=== PATIENT | male | born 1965 | race African-American/Black ===

== ENCOUNTER 2016-05-30 23:24 | Emergency (ER) | payer OTHER ==
[2016-05-30] MEDS ORDERED: ASPIRIN PO ONE (23:39)
--- NOTE | 2016-05-30 23:56 | PROVIDER DOCUMENTATION ---
HPI-Cardiac General - General Chief Complaint: Palpitations Stated Complaint: CHEST PAIN Time Seen by Provider: 05/31/16 00:00 Source: patient, family () Allergies/Adverse Reactions: Patient Allergies Allergy/AdvReac Type Severity Reaction Status Date / Time lisinopril Allergy ANAPHYLAXIS Verified 05/30/16 23:36 - History of Present Illness-Cardiac Nature of Presenting Problem: 50 y/o AAAmy presents to the ED with his heart racing that began this evening. Pt states this happened once before 7 months ago where he had to be cardioversion. Pt says he became SOB when it started. Location: reports: substernal Quality of Pain: reports: pressure Severity in ED: moderate Onset/Duration: this evening Timing: still present Modifying Factors: improves with: nothing Palpitation Quality: fast/pounding heart beat History of arrythmia: reports: A-Fib Recent use of:: reports: no stimulants Review of Systems - Adult - REVIEW OF SYSTEMS - ADULT Constitutional: denies: chills, fever Eyes: reports: no symptoms reported Ears, Nose, Mouth & Throat: reports: no symptoms reported Cardiovascular: reports: palpitations. denies: edema, orthopnea, poor circulation, syncope Respiratory: reports: shortness of breath. denies: cough, wheezing Gastrointestinal: denies: abdominal pain, diarrhea, nausea, vomiting Genitourinary: reports: no symptoms reported Musculoskeletal: reports: no symptoms reported Integumentary: reports: no symptoms reported Neurological: reports: no symptoms reported Psychiatric: reports: no symptoms reported Endocrine: reports: no symptoms reported Hematologic/Lymphatic: reports: no symptoms reported Allergic/Immunologic: reports: no symptoms reported All Other Systems: Reviewed and Negative Past History - Adult - PAST MEDICAL HISTORY-ADULT Review of Records: reports: Old Records Reviewed, Nursing Assessment Review, Medications Reviewed Major Childhood Illnesses: reports: denies history Cardiovascular: reports: HTN Respiratory: reports: denies history Gastrointestinal: reports: pancreatitis Genitourinary: reports: denies history Musculoskeletal: reports: denies history Neurological: reports: denies history Psychiatric: reports: denies history Endocrine/Immune: reports: denies history Other Conditions: reports: denies history - PRIOR SURGERIES/PROCEDURES Surgical/Procedure History: reports: none - IMMUNIZATION STATUS Childhood Immunizations: See Nurse Assessment Flu Vaccine: See Nurse Assessment - FAMILY HISTORY Family History: reviewed, not pertinent Physical Exam-General - PHYSICAL EXAM-ADULT Initial Vital Signs Reviewed: Yes - CONSTITUTIONAL General Appearance: appears well, alert, no apparent distress - EYES Eyes: PERRL/EOMI, pink conjunctivae - HEAD, EARS, NOSE, MOUTH & THROAT HENMT: moist mucous membranes, normal ENT inspection, TMs normal, pharynx normal - NECK Neck: non-tender, full range of motion, supple, normal inspection - RESPIRATORY Respiratory: chest non-tender, lungs clear, normal breath sounds, no pleuratic chest pain, no respiratory distress, no accessory muscle use - CARDIOVASCULAR Cardiovascular: normal peripheral pulses, tachycardia - GASTROINTESTINAL (ABDOMEN) Abdominal Exam: normal bowel sounds, non tender, soft - MUSCULOSKELETAL Back Exam: normal inspection, no CVA tenderness, no vertebral tenderness Extremity: normal range of motion, non-tender, normal gait, normal inspection - SKIN Integumentary: normal color, normal turgor, warm/dry - NEUROLOGIC Neurologic: grossly normal, no motor/sensory deficits - PSYCHIATRIC Psych/Mental Status: normal mood/affect, normal thought content, normal thought process, oriented x 3 Progress - PLAN OF CARE/RESULTS Progress/Plan/Lab Results: Orders Category Date Time Status Cardiac Monitoring DIRECTED Care 05/30/16 23:39 Active Oxygen Therapy- ED Nursing DIRECTED Care 05/30/16 23:39 Active Saline Loc NOW Care 05/30/16 23:39 Active CBC WITH DIFF [HEME] Stat Lab 05/30/16 23:50 Completed CK PROFILE [SP CHEM] Stat Lab 05/30/16 23:50 Completed COMPREHENSIVE METABOLIC PANEL [CHEM] Stat Lab 05/30/16 23:50 Completed MAGNESIUM [CHEM] Stat Lab 05/30/16 23:50 Completed TROPONIN T Stat Lab 05/30/16 23:50 Completed UDS [URINE DRUG SCREEN PL] Stat Lab 05/31/16 01:17 Completed Aspirin Med 05/30/16 23:39 Discontinued 325 mg PO NOW ONE Diltiazem [Cardizem] Med 05/31/16 00:01 Discontinued 20 mg IV NOW ONE EKG [EKG] Stat Ther 05/30/16 23:39 Ordered Vital Signs Temp Pulse Resp BP Pulse Ox 05/31/16 01:18 98.5 F 78 18 131/94 100 05/30/16 23:29 98 F 98 H 16 195/110 100 lisinopril Allergy (Verified 01/04/17 23:36) ANAPHYLAXIS Labetalol [Trandate] 300 mg PO BID #60 tablet 04/01/14 Clonidine [Catapres] 0.2 mg PO BID #60 tablet 05/08/14 Laboratory 05/30/16 05/30/16 05/30/16 23:50 23:50 23:50 WBC 6.83 RBC 5.12 Hgb 14.6 Hct 43.0 MCV 84.0 MCH 28.5 MCHC 34.0 RDW Std Deviation 12.4 Plt Count 159 MPV 10.5 H Immature Gran % (Auto) 0.1 Neut % (Auto) 52.1 Lymph % (Auto) 33.1 [place] % (Auto) 11.0 H Eos % (Auto) 3.4 Baso % (Auto) 0.3 Immature Gran # (Auto) 0.01 Neut # (Auto) 3.56 Lymph # (Auto) 2.26 [place] # (Auto) 0.75 H Eos # (Auto) 0.23 Baso # (Auto) 0.02 Sodium Potassium Chloride Carbon Dioxide Anion Gap BUN Creatinine Estimated GFR/1.73 m2 BUN/Creatinine Ratio Glucose Calculated Osmolality Calcium Magnesium Total Bilirubin AST ALT Alkaline Phosphatase Creatine Kinase Creatine Kinase Index CK-MB (CK-2) Troponin T < 0.010 Total Protein Albumin Globulin Albumin/Globulin Ratio Urine Opiates Screen PRESUMPTIVE POSITIVE A Ur Oxycodone Screen PRESUMPTIVE POSITIVE A Urine Methadone Screen NONE DETECTED Ur Barbituates Screen NONE DETECTED Ur Tricyclics Screen NONE DETECTED Ur Phencyclidine Scrn NONE DETECTED Ur Amphetamines Screen NONE DETECTED U Methamphetamines Scrn NONE DETECTED Urine MDMA Screen NONE DETECTED U Benzodiazepines Scrn NONE DETECTED Urine Cocaine Screen NONE DETECTED U Cannabinoids Screen PRESUMPTIVE POSITIVE A 05/30/16 23:50 WBC RBC Hgb Hct MCV MCH MCHC RDW Std Deviation Plt Count MPV Immature Gran % (Auto) Neut % (Auto) Lymph % (Auto) [place] % (Auto) Eos % (Auto) Baso % (Auto) Immature Gran # (Auto) Neut # (Auto) Lymph # (Auto) [place] # (Auto) Eos # (Auto) Baso # (Auto) Sodium 139 Potassium 3.2 L Chloride 100 Carbon Dioxide 27 Anion Gap 12 BUN 14 Creatinine 0.9 Estimated GFR/1.73 m2 > 60 BUN/Creatinine Ratio 16 Glucose 99 Calculated Osmolality 278 Calcium 9.7 Magnesium 1.6 Total Bilirubin 0.40 AST 35 H ALT 29 Alkaline Phosphatase 62 Creatine Kinase 288 H Creatine Kinase Index 1.2 CK-MB (CK-2) 3.52 Troponin T Total Protein 7.8 Albumin 4.7 Globulin 3.0 Albumin/Globulin Ratio 2.0 Urine Opiates Screen Ur Oxycodone Screen Urine Methadone Screen Ur Barbituates Screen Ur Tricyclics Screen Ur Phencyclidine Scrn Ur Amphetamines Screen U Methamphetamines Scrn Urine MDMA Screen U Benzodiazepines Scrn Urine Cocaine Screen U Cannabinoids Screen - EKG 1 Time of EKG reading by physician:: 23:43 EKG Read and Signed by:: Freddy Palmer EKG Interpretation (*Must complete 3 of following elements*): Abnormal Rate: 98 Rhythm: A-Fib Comments: Non specific T wave abnormality - CONSULTS/PCP/HOSPITALIST Notification #1 *Consult/PCP/Hospitalist*: Dr Tirado Time Discussed: 01:52 Reason/Comments: plan of treatment Consult Disposition: other (Follow up in the Morning with Dr Owens) Departure - Departure Time of Disposition Order: 01:53 DIAGNOSIS: Drug abuse Hypertension Qualifiers: Hypertension type: essential hypertension Qualified Code(s): I10 - Essential ( primary) hypertension A-fib Qualifiers: Atrial fibrillation type: unspecified Qualified Code(s): I48.91 - Unspecified atrial fibrillation Disposition: HOME 01 Certified Medical Emergency: Emergent Condition: Stable Additional Instructions: Follow up with Dr Owens in the morning ED Follow Up Instructions: You have been treated by a care provider in the Emergency Department. These instructions are being provided to you so you can have an understanding of how to care for yourself upon discharge. Upon discharge from the Emergency Department, you are responsible for making arrangements for follow-up care by a physician of your choice. Take all prescribed medications as directed. Return to the Emergency Department immediately for any new or worsening symptoms. You may call the Physician Referral phone number at [phone] to obtain a list of Physicians who are taking new patients. Prescriptions: Diltiazem HCl [Cardizem LA] 240 mg PO DAILY #30 tab.er.24h Referrals: Alexus Gracia MD [Primary Care Provider] - Jesse Owens MD [STAFF PHYSICIAN] - Attestation - Scribe Verification/Attestation Scribe:: Fuentes Verdin Acting as Scribe for:: Freddy Palmer Scribe documention review:: This chart was documented by a scribe and accurately reflects the service the provider performed and the decisions made by the provider.
[2016-05-30 23:59] LABS: MANUAL DIFF NEEDED? NO
[2016-05-31] MEDS ORDERED: CARDIZEM IV ONE (00:01)
[2016-05-31 00:08] LABS: BASO% 0.3 % (0.0-0.8); EOS# 0.23 X1000 (0.0-0.7); EOS% 3.4 % (0.0-10.0); HEMOGLOBIN 14.6 g/dL (14.0-18.0); IMM GRAN# 0.01 X1000 (0.0-0.04); IMM GRAN% 0.1 % (0.0-0.5); LYMPH# 2.26 X1000 (1.2-3.4); LYMPH% 33.1 % (20.5-51.1); MCH 28.5 PG (27-31); MONO# 0.75 X1000 (0.11-0.59); MPV 10.5 FL (7.4-10.4); NEUT% 52.1 % (42.2-75.2); PLT 159 X1000 (130-400); RBC 5.12 XMIL (4.7-6.1)
[2016-05-31 00:25] LABS: AGAP 12; ALBUMIN 4.7 g/dL (3.5-5.0); ALKALINE PHOSPHATASE 62 U/L (32-122); BUN 14 mg/dL (8-22); CALCIUM 9.7 mg/dL (8.8-10.2); CHLORIDE 100 mmol/L (98-107); COSMO 278; GOT 35 U/L (10-34); GPT 29 U/L (10-44); MAGNESIUM 1.6 mg/dL (1.5-2.7); POTASSIUM 3.2 mmol/L (3.5-5.1); SODIUM 139 mmol/L (136-145); TCO2 27 mmol/L (25-35); TOTAL PROTEIN 7.8 g/dL (6.3-8.3)
[2016-05-31 00:26] LABS: CK PROFILE 288 U/L (24-204)
[2016-05-31 01:12] LABS: CK INDEX 1.2 (0.0-2.5); CK-MB 3.52 ng/mL (0.0-5.0)
[2016-05-31 01:35] LABS: UR AMPHETAMINES QUAL NONE DETECTED (NONE DETECT); UR BARBITUATES QUAL NONE DETECTED (NONE DETECT); UR BENZODIAZEPIN QUAL NONE DETECTED (NONE DETECT); UR CANNABINOIDS QUAL PRESUMPTIVE POSITIVE (NONE DETECT); UR COCAINE QUAL NONE DETECTED (NONE DETECT); UR MDMA QUAL NONE DETECTED (NONE DETECT); UR METHADONE QUAL NONE DETECTED (NONE DETECT); UR METHAMPHETAMINE QUAL NONE DETECTED (NONE DETECT); UR OPIATES QUAL PRESUMPTIVE POSITIVE (NONE DETECT); UR OXYCODONE QUAL PRESUMPTIVE POSITIVE (NONE DETECT); UR PCP QUAL NONE DETECTED (NONE DETECT); UR TCA QUAL NONE DETECTED (NONE DETECT)
[2016-05-31 02:25] VITALS: BP 155/100
--- NOTE | 2016-05-31 03:25 | EKG Report ---
Test Performed on : 05/30/2016 11:43:57 PM Test Reason : TACHYCARDIA, IRREGULAR HR, HX AFIB Blood Pressure : / mmHG Vent. Rate : 098 BPM Atrial Rate : 098 BPM P-R Int : 000 ms QRS Dur : 080 ms QT Int : 354 ms P-R-T Axes : 000 039 -71 degrees QTc Int : 451 ms Atrial fibrillation. Nonspecific T wave abnormality Abnormal ECG When compared with ECG of 28-OCT-2015 14:05, Atrial fibrillation. has replaced Sinus rhythm. ST no longer elevated in Anterior leads Nonspecific T wave abnormality, worse in Anterior leads Unconfirmed Result
== END 2016-05-31 02:45 | disposition home or self-care (01) ==
LOC: P.ED 23:24
DX: I48.91 Unspecified atrial fibrillation (principal); I10 Essential (primary) hypertension; F19.10 Other psychoactive substance abuse, uncomplicated; R94.31 Abnormal electrocardiogram [ECG] [EKG]; R00.2 Palpitations; R06.02 Shortness of breath; R07.89 Other chest pain; R00.0 Tachycardia, unspecified
CPT/HCPCS: 80053; 82550; 82553; 83735; 84484; 85025; 93005; 96374; G0477

== ENCOUNTER 2018-11-12 20:44 | Inpatient (IN) ==
[2018-11-12] MEDS ORDERED: MORPHINE IV ONE (20:57)
[2018-11-12 21:06] LABS: BASO# 0.04 X1000 (0.0-0.2); BASO% 0.6 % (0.0-0.8); EOS# 0.15 X1000 (0.0-0.7); EOS% 2.2 % (0.0-10.0); HEMATOCRIT 40.8 % (42.0-52.0); LYMPH# 2.44 X1000 (1.2-3.4); LYMPH% 35.3 % (20.5-51.1); MCHC 34.3 g/dL (33-37); MCV 81.6 FL (81-99); MONO# 0.54 X1000 (0.11-0.59); MONO% 7.8 % (1.7-9.3); MPV 12.3 FL (7.4-10.4); NEUT# 3.74 X1000 (1.4-6.5); NEUT% 54.1 % (42.2-75.2); PLT 144 X1000 (130-400); RDW 15.5 % (11.5-14.5); WBC 6.91 X1000 (4.8-10.8)
--- NOTE | 2018-11-12 21:17 | Diag Imaging Result Doc PS360 ---
EXAM: CHEST-1 VIEW INDICATION: chest pain, sob TECHNIQUE: One view COMPARISON: 08/11/2017 FINDINGS: The lungs are grossly clear. There is no discrete pleural fluid collection or pneumothorax. There is cardiomegaly, which was not present on the previous study. In part, this is due to magnification from AP technique. The central vasculature is mildly prominent suggesting pulmonary venous congestion. IMPRESSION: Interval development of cardiomegaly and mild pulmonary venous congestion as described. Electronically signed by Dayron Caputo 11/12/2018 9:15 PM
[2018-11-12 21:28] LABS: AGAP 11; ALB/GLOB RATIO 1.5; ALKALINE PHOSPHATASE 76 U/L (32-122); BUN 15 mg/dL (8-22); CALCIUM 9.4 mg/dL (8.8-10.2); CHLORIDE 100 mmol/L (98-107); COSMO 273; CREATININE 1.1 mg/dL (0.7-1.2); ESTIMATED GFR > 60; GLUCOSE 111 mg/dL (70-104); GOT 37 U/L (10-34); GPT 20 U/L (10-44); POTASSIUM 3.6 mmol/L (3.5-5.1); SODIUM 136 mmol/L (136-145); TCO2 25 mmol/L (25-35); TOTAL BILIRUBIN 2.99 mg/dL (0.20-1.00); TOTAL PROTEIN 6.7 g/dL (6.3-8.3)
--- NOTE | 2018-11-12 21:57 | PROVIDER DOCUMENTATION ---
This chart was entered by Joelle Valles Scribe, acting as scribe for Vlad Paredes MD. HPI-Respiratory General - General Chief Complaint: Shortness of Breath Stated Complaint: CHF/SOB Time Seen by Provider: 11/12/18 20:49 Source: patient Allergies/Adverse Reactions: Patient Allergies Allergy/AdvReac Type Severity Reaction Status Date / Time lisinopril Allergy ANAPHYLAXIS Verified 11/12/18 20:59 Home Medications: Home Medication List Medication Instructions Recorded Confirmed Last Taken Type Aspirin [Aspir-Low] 1 tab PO QAM 11/12/18 11/12/18 Unknown History Cephalexin 1 cap PO BID 11/12/18 11/12/18 Unknown History Furosemide [Lasix] 80 mg pe PO QAM 11/12/18 11/12/18 Unknown History Labetalol [Trandate] 1 tab PO BID 11/12/18 11/12/18 Unknown History Potassium Chloride 1 tab PO BID 11/12/18 11/12/18 Unknown History - History of Present Illness-Resp Nature of Presenting Problem: 53yom SOB and intermittent sharp chest pain, that last for 5mins, for last 3 days. Pt also reports increased weight gain over last few days even though he is on Lasix and taking them as prescribed. Pt reports a similar episode in May where he was diagnosed with CHF. Pt has hx of Afib, HTN. Pt is non-toxic in appearance. Quality of Pain: reports: sharp, tightness Severity in ED: reports: moderate Onset/Duration: reports: 3 days ago Timing: reports: still present, intermittent, changing over time Cough Quality/Degree: reports: mild Current Respiratory Medication Therapy: Initiated see nurses note Associated Symptoms: reports: cough, shortness of breath Similar Symptoms Previously?: Yes Recently seen or treated by another doctor?: No Review of Systems - Adult - REVIEW OF SYSTEMS - ADULT Constitutional: reports: see HPI, fatique, weight gain. denies: chills, fever Eyes: reports: no symptoms reported Ears, Nose, Mouth & Throat: reports: no symptoms reported Cardiovascular: reports: see HPI, chest pain. denies: heart murmur, syncope Respiratory: reports: see HPI, cough, shortness of breath Gastrointestinal: reports: no symptoms reported Genitourinary: reports: no symptoms reported Musculoskeletal: reports: no symptoms reported Integumentary: reports: no symptoms reported Neurological: reports: no symptoms reported Psychiatric: reports: no symptoms reported Endocrine: reports: no symptoms reported Hematologic/Lymphatic: reports: no symptoms reported Allergic/Immunologic: reports: no symptoms reported All Other Systems: Reviewed and Negative Past History - Adult - PAST MEDICAL HISTORY-ADULT Review of Records: reports: Nursing Assessment Review, Medications Reviewed, Social history reviewed & non-contributory. Major Childhood Illnesses: reports: denies history Cardiovascular: reports: A-Fib, CHF, HTN Respiratory: reports: asthma Gastrointestinal: reports: pancreatitis Obstetrical/Gynecological: reports: denies history Genitourinary: reports: denies history Musculoskeletal: reports: denies history Neurological: reports: denies history Psychiatric: reports: denies history Endocrine/Immune: reports: denies history Other Conditions: reports: denies history - PRIOR SURGERIES/PROCEDURES Surgical/Procedure History: reports: none - IMMUNIZATION STATUS Childhood Immunizations: See Nurse Assessment Flu Vaccine: See Nurse Assessment - FAMILY HISTORY Family History: reviewed, not pertinent Physical Exam-General - PHYSICAL EXAM-ADULT Initial Vital Signs Reviewed: Yes - CONSTITUTIONAL General Appearance: appears well, alert, mild distress. negative: anxious, combative - EYES Eyes: PERRL/EOMI, pink conjunctivae. negative: meningismus, photophobia - HEAD, EARS, NOSE, MOUTH & THROAT HENMT: moist mucous membranes, normal ENT inspection. negative: angioedema, hearing deficit - NECK Neck: non-tender, full range of motion, supple, normal inspection. negative: Brudzinski's sign, carotid bruit - GASTROINTESTINAL (ABDOMEN) Abdominal Exam: normal bowel sounds, non tender, soft. negative: rigid, rebound, tenderness - LYMPHATIC Lymphatic: no adenopathy. negative: striations - MUSCULOSKELETAL Back Exam: normal inspection, no CVA tenderness. negative: swelling Extremity: normal range of motion, non-tender, normal gait. negative: deformity - SKIN Integumentary: normal color, normal turgor. negative: diaphoresis, jaundice - NEUROLOGIC Neurologic: home coordinator II-XII nml as tested, grossly normal, no motor/sensory deficits. negative: facial droop, focal weakness - PSYCHIATRIC Psych/Mental Status: normal mood/affect, normal thought content, normal thought process, oriented x 3. negative: disoriented x 3, anxious, disheveled, depressed affect Progress - PLAN OF CARE/RESULTS Progress/Plan/Lab Results: Vital Signs - 8 hr 11/12/18 20:48 11/12/18 20:54 11/12/18 21:02 Temperature 97.6 F Pulse Rate 98 H 103 H 93 H Respiratory Rate 18 30 H 25 H Blood Pressure 156/131 156/131 144/119 O2 Sat by Pulse Oximetry 97 11/12/18 21:32 Temperature Pulse Rate 86 Respiratory Rate 22 Blood Pressure 148/115 O2 Sat by Pulse Oximetry 99 Laboratory Results - last 24 hr 11/12/18 11/12/18 11/12/18 20:56 20:56 20:56 WBC 6.91 RBC 5.00 Hgb 14.0 Hct 40.8 L MCV 81.6 MCH 28.0 MCHC 34.3 RDW Std Deviation 15.5 H Plt Count 144 MPV 12.3 H Immature Gran % (Auto) 0.0 Neut % (Auto) 54.1 Lymph % (Auto) 35.3 [place] % (Auto) 7.8 Eos % (Auto) 2.2 Baso % (Auto) 0.6 Immature Gran # (Auto) 0.00 Neut # (Auto) 3.74 Lymph # (Auto) 2.44 [place] # (Auto) 0.54 Eos # (Auto) 0.15 Baso # (Auto) 0.04 Sodium 136 Potassium 3.6 Chloride 100 Carbon Dioxide 25 Anion Gap 11 BUN 15 Creatinine 1.1 Estimated GFR/1.73 m2 > 60 BUN/Creatinine Ratio 14 Glucose 111 H Calculated Osmolality 273 Calcium 9.4 Total Bilirubin 2.99 H AST 37 H ALT 20 Alkaline Phosphatase 76 Troponin T [id number] Pept 9663 H Total Protein 6.7 Albumin 4.0 Globulin 2.7 Albumin/Globulin Ratio 1.5 11/12/18 20:56 WBC RBC Hgb Hct MCV MCH MCHC RDW Std Deviation Plt Count MPV Immature Gran % (Auto) Neut % (Auto) Lymph % (Auto) [place] % (Auto) Eos % (Auto) Baso % (Auto) Immature Gran # (Auto) Neut # (Auto) Lymph # (Auto) [place] # (Auto) Eos # (Auto) Baso # (Auto) Sodium Potassium Chloride Carbon Dioxide Anion Gap BUN Creatinine Estimated GFR/1.73 m2 BUN/Creatinine Ratio Glucose Calculated Osmolality Calcium Total Bilirubin AST ALT Alkaline Phosphatase Troponin T 0.189 H [id number]-[id number] Pept Total Protein Albumin Globulin Albumin/Globulin Ratio Orders Category Date Time Status Nursing- Obtain EKG ONCE Care 11/12/18 20:56 Active cxr [CHEST-1 VIEW] [RAD] Stat Exams 11/12/18 20:56 Completed CBC WITH ELECTRONIC DIFF [HEME] Stat Lab 11/12/18 20:56 Completed COMPREHENSIVE METABOLIC PANEL [CHEM] Stat Lab 11/12/18 20:56 Completed PRO B-NATRIURETIC PEPTIDE Stat Lab 11/12/18 20:56 Completed TROPONIN T Stat Lab 11/12/18 20:56 Completed Morphine Med 11/12/18 20:57 Discontinued 4 mg IV NOW ONE EKG [EKG] Stat Ther 11/12/18 20:56 Ordered Result Diagrams: 11/12/18 20:56 11/12/18 20:56 - EKG 1 Time of EKG reading by physician:: 20:57 (') EKG Read and Signed by:: Vlad Paredes EKG Interpretation (*Must complete 3 of following elements*): Abnormal (septal infarct, age undetermined) Rate: 100 Rhythm: sinus with occasional PAC QRS: LVH (minimal criteria, may be normal variant), PVC's (occasional) ST Wave: normal - XRAY 1 XRAY: Bilateral XRAY Study: Chest Impression: See EMR Report (IMPRESSION: Interval development of cardiomegaly and mild pulmonary venous congestion as described. Electronically signed by Dayron Caputo 11/12/2018 9:15 PM) - CONSULTS/PCP/HOSPITALIST Notification #1 *Consult/PCP/Hospitalist*: Dr. Lee Time Discussed: 21:46 Consult Disposition: Will see in ED (agreed to see pt in ED) Departure - Departure Date of Disposition Decision: 11/12/18 Time of Disposition Decision: 21:56 DIAGNOSIS: Chest pain due to CAD CHF exacerbation Qualifiers: Heart failure type: unspecified Qualified Code(s): I50.9 - Heart failure, unspecified Disposition: ADMITTED INPATIENT 09 Certified Medical Emergency: Emergent Condition: Stable Referrals and Follow-Ups: Franny Flores CRNP [Primary Care Provider] - - Critical Care Note This patient required my direct & personal management of CC.: No Attestation - Physician/ ADALI Attestation Patient care was provided by Advanced Practice Provider:: No The physician spent face to face time with patient:: Yes Advanced Practice Provider documentation review:: Supervising physician onsite and consulted in the evaluation and care of this patient. The physician did have a face to face encounter with the patient. This chart was documented by the indicated scribe, (Joelle Valles, Chani) and accurately reflects the services I performed and decisions made by me, Vlad Paredes MD, as attested by the provider's signature.
[2018-11-12] MEDS ORDERED: LASIX IV ONE (22:03)
[2018-11-12] MEDS ORDERED: DUONEB (A & A) INH ONE (22:03)
[2018-11-12] MEDS ORDERED: ASPIRIN PO ONE (22:20)
[2018-11-12 23:32] LABS: INR 1.25; PROTIME 16.6 Seconds (11.0-16.0)
[2018-11-12 23:34] LABS: MAGNESIUM 1.5 mg/dL (1.5-2.7)
[2018-11-12] MEDS ORDERED: LASIX PO SCH (23:42)
[2018-11-12] MEDS ORDERED: TOPROL XL PO ONE (23:42)
[2018-11-12] MEDS ORDERED: ZOFRAN IV PRN (23:42)
--- NOTE | 2018-11-12 23:43 | HISTORY AND PHYSICAL ---
REASON FOR ADMISSION: Three-day history of shortness of breath. HISTORY OF PRESENT ILLNESS: Mr. Cem Carreon is a 53-year-old male with past medical history of atrial fibrillation; heart failure with preserved EF; hypertensive heart disease; chronic alcohol and cocaine abuse; prior alcoholic pancreatitis. He also has a prior history of suicide attempt, and at this point in time says he is not suicidal at this point in time, nor is he having any auditory or visual hallucinations. The patient comes in primarily because of a new-onset 3 to 4-day history of orthopnea with 2-day history of PND, associated with retrosternal chest pain which is sometimes exacerbated when he coughs. He says he has been having a persistent dry cough for the last 4 days. No fever or chills. The aforementioned chest pain is retrosternal, nonradiating to any area, with no specific simultaneous anginal equivalent. He does also admit to having 2-day history of easy satiety and lower extremity swelling, with his shoes getting tighter on him. The patient states that he has been having occasional lightheadedness, and today he started having some nausea and one episode of vomiting. He also denies any palpitations. REVIEW OF SYSTEMS: No genitourinary or focal neurological complaints. No polyuria or polydipsia. No agitation or anxiety. He has since been given 4 mg of morphine in the ER and his pain has resolved. Otherwise, 12-system review was done. Positive findings per HPI. The patient denies any use of [id number] NSAIDs, sodas, and he states he is compliant with his medication. ALLERGIES: Lisinopril, which causes angioedema. MEDICATIONS: Home medication is notable for aspirin 81 mg daily; recently he has been placed on Keflex; Lasix 80 mg q.a.m.; potassium chloride 10 mEq b.i.d.; labetalol 20 mg b.i.d. FAMILY HISTORY: Sister and mother both have heart disease. No diabetes in first-degree relatives. SURGICAL HISTORY: He has had prior elective cardioversion. SOCIAL HISTORY: He stopped drinking alcohol and using tobacco a week ago. He states that he has not used cocaine in over a year, but uses marijuana 3 times a week. DIAGNOSTIC DATA: EKG showed normal sinus rhythm with left atrial enlargement; Q waves in the septal leads; ST depressions in the lateral leads; normal axis. Chest film showed mild increased vascular markings with cephalization. LABORATORY DATA: White count 6000, hemoglobin and hematocrit 14 and 40, platelets 144,000, normal differential. Troponin is 0.189. ProBNP is 9600. AST 37, ALT is 20, total bilirubin is 3. BUN 15, creatinine 1.1. PHYSICAL EXAMINATION: GENERAL: Middle-aged male who is calm, in bed, not in acute distress. He is alert and oriented x3. Normal mood and affect. HEENT: Head is normocephalic, atraumatic. Eyes are icteric but not pale. ENT and oropharyngeal exam is grossly normal. No central cyanosis. NECK: Supple. Noticeable JVD or hepatojugular reflux. No bruit or thyromegaly. CHEST: Few bibasilar crepitations. A few scattered wheezes. CARDIOVASCULAR: First and second heart sounds heard. No gallops, murmurs or rubs. Rhythm is regular. ABDOMEN: Slightly protuberant, soft, with tenderness confined to the right upper quadrant and epigastric area, but no rebound or guarding. Bowel sounds hypoactive on exam at this time. No mass or organomegaly appreciated. EXTREMITIES: The patient has trace lower extremity edema but has good distal pulse volumes, which are symmetrical and surprisingly regular. No edema, clubbing or peripheral cyanosis. NEUROLOGICAL: No gross focal deficits. SKIN: Intact. No breakdown, lesions or erythema. MUSCULOSKELETAL: Exam is grossly normal. ASSESSMENT: 1. Acute heart failure with preserved ejection fraction. 2. Abnormal troponin. This could represent a non-ST-wave myocardial infarction. 3. Probable hyperbilirubinemia, probably secondary to recent alcohol abuse versus passive congestion. 4. Hypertensive heart disease. 5. Atrial fibrillation. In sinus rhythm, stable. 6. Alcohol abuse. 7. Active marijuana use. PLAN: The patient will be admitted. Serial cardiac enzymes will be drawn. Ideally I would prefer to give this patient high-dose anticoagulation with Lovenox, but PT/INR is pending and secondly the patient probably has underlying liver disease, which is difficult to determine if the patient is in a hypercoagulable state or in a high-risk bleeding state. Suffice to say, we will keep the patient on just 40 mg of Lovenox, full-dose aspirin and statins. We will consult Cardiology to see. Echocardiogram will be ordered to assess the patient's LV function and assess for regional wall motion abnormality. Otherwise we will continue beta-blockers for rate control, nitroglycerin paste for decreased venous return and diuretics to relieve pulmonary congestion. 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 The patient's hyperbilirubinemia could be from passive congestion from CHF, but more likely from alcoholic liver disease. Right upper quadrant sonogram will be ordered. Because of alcoholic history, we will give the patient thiamine and monitor closely for alcohol withdrawal, although he states he quit drinking over a week ago. If the patient is to be believed, then the risk of withdrawal symptoms should be on the low side. The patient will be admitted to our stepdown unit. cc: MD Marcelino Santa MD
[2018-11-13 00:02] LABS: DIRECT BILIRUBIN 0.5 mg/dL (0.00-0.20)
[2018-11-13] MEDS: NITROGLYCERIN TOP SCH ×5 (00:17→23:22)
[2018-11-13] MEDS: LOVENOX SUBQ SCH ×2 (00:18→21:43)
[2018-11-13] MEDS: TYLENOL PO PRN ×2 (03:48→09:24)
[2018-11-13 05:41] LABS: BASO# 0.03 X1000 (0.0-0.2); BASO% 0.5 % (0.0-0.8); EOS# 0.08 X1000 (0.0-0.7); EOS% 1.3 % (0.0-10.0); HEMATOCRIT 34.9 % (42.0-52.0); HEMOGLOBIN 12.1 g/dL (14.0-18.0); LYMPH# 2.08 X1000 (1.2-3.4); LYMPH% 34.4 % (20.5-51.1); MCH 28.2 PG (27-31); MCHC 34.7 g/dL (33-37); MCV 81.4 FL (81-99); MONO# 0.54 X1000 (0.11-0.59); MONO% 8.9 % (1.7-9.3); NEUT# 3.32 X1000 (1.4-6.5); NEUT% 54.9 % (42.2-75.2); PLT 119 X1000 (130-400); RBC 4.29 XMIL (4.7-6.1); RDW 15.2 % (11.5-14.5); WBC 6.05 X1000 (4.8-10.8)
[2018-11-13 06:06] LABS: AGAP 13; BUN 15 mg/dL (8-22); CHLORIDE 103 mmol/L (98-107); COSMO 280; ESTIMATED GFR > 60; GLUCOSE 103 mg/dL (70-104); MAGNESIUM 1.4 mg/dL (1.5-2.7); POTASSIUM 3.6 mmol/L (3.5-5.1); SODIUM 140 mmol/L (136-145); TCO2 24 mmol/L (25-35)
--- NOTE | 2018-11-13 07:13 | EKG Report ---
Test Performed on : 11/13/2018 06:49:57 AM Test Reason : chest pain Blood Pressure : / mmHG Vent. Rate : 079 BPM Atrial Rate : 079 BPM P-R Int : 170 ms QRS Dur : 092 ms QT Int : 414 ms P-R-T Axes : 069 015 -05 degrees QTc Int : 474 ms Normal sinus rhythm. with sinus arrhythmia. Septal infarct (cited on or before 12-AUG-2017) ST & T wave abnormality, consider lateral ischemia Abnormal ECG When compared with ECG of 12-NOV-2018 20:49, (Unconfirmed) premature ventricular complexes. are no longer present premature atrial complexes. are no longer present Confirmed by Marifer MALDONADO, Sony Rodríguez ([id number]) on 11/13/2018 1:41:55 PM
--- NOTE | 2018-11-13 07:16 | EKG Report ---
Test Performed on : 11/12/2018 8:49:39 PM Test Reason : SOB Blood Pressure : / mmHG Vent. Rate : 100 BPM Atrial Rate : 100 BPM P-R Int : 158 ms QRS Dur : 084 ms QT Int : 362 ms P-R-T Axes : 070 067 -31 degrees QTc Int : 466 ms Sinus rhythm. with occasional premature ventricular complexes. and premature atrial complexes. Minimal voltage criteria for LVH, may be normal variant Septal infarct (cited on or before 12-AUG-2017) ST & T wave abnormality, consider lateral ischemia Abnormal ECG When compared with ECG of 12-AUG-2017 00:53, premature ventricular complexes. are now present premature atrial complexes. are now present ST now depressed in Lateral leads T wave inversion now evident in Lateral leads Unconfirmed Result
--- NOTE | 2018-11-13 07:49 | Diag Imaging Result Doc PS360 ---
EXAM: US ABDOMEN-COMPLETE HISTORY: Hyperbilirubinemia TECHNIQUE: Abdominal ultrasound COMPARISON: None. FINDINGS: No abdominal aortic aneurysm. Normal inferior vena cava. There is a small amount of ascites about the liver and spleen. The gallbladder wall is thickened. This is frequently seen with ascites. No stones. No focal hepatic abnormality. Normal pancreatic head and body. The pancreatic tail is obscured. The common bile duct measures 4 mm. Normal spleen. Small left renal cyst. No hydronephrosis. IMPRESSION: Small amount of ascites Electronically signed by Gabriel Chand 11/13/2018 7:46 AM
[2018-11-13] MEDS ORDERED: MAGNESIUM SULFATE 2 GM/S.W.I. 2 GM/50 ML IVPB IV ONE (08:02)
[2018-11-13] MEDS: ASPIRIN EC PO SCH (08:43)
[2018-11-13] MEDS: KLOR-CON PO SCH ×2 (08:43→21:42)
[2018-11-13] MEDS: LASIX IV SCH ×2 (09:00→21:42)
[2018-11-13] MEDS ORDERED: LIPITOR PO SCH (09:00)
[2018-11-13] MEDS ORDERED: TOPROL XL PO SCH (09:00)
[2018-11-13] MEDS ORDERED: ENTRESTO 24 MG-26 MG TABLET PO SCH (10:30)
[2018-11-13] MEDS: DUONEB (A & A) INH PRN ×2 (10:50→15:44)
[2018-11-13 12:34] LABS: UR AMPHETAMINES QUAL PRESUMPTIVE POSITIVE (NONE DETECT)
[2018-11-13 12:35] LABS: UR BARBITUATES QUAL NONE DETECTED (NONE DETECT); UR BENZODIAZEPIN QUAL NONE DETECTED (NONE DETECT); UR CANNABINOIDS QUAL PRESUMPTIVE POSITIVE (NONE DETECT); UR COCAINE QUAL NONE DETECTED (NONE DETECT); UR METHADONE QUAL NONE DETECTED (NONE DETECT); UR OPIATES QUAL PRESUMPTIVE POSITIVE (NONE DETECT); UR OXYCODONE QUAL NONE DETECTED (NONE DETECT); UR PCP QUAL NONE DETECTED (NONE DETECT)
--- NOTE | 2018-11-13 13:43 | PROGRESS NOTE ---
DATE: 11/13/2018 SUBJECTIVE: The patient reports breathing better. Denies any chest pain. Now reports mild chest pain. Denies any other complaints. OBJECTIVE: Vital Signs: Temperature 97.4 degrees, heart rate 87, respiratory rate 16, and blood pressure 157/117. O2 saturation 100% 2 L nasal cannula. General: This is a chronically ill- appearing 53-year-old male lying in bed in no acute distress. HEENT: Head is normocephalic, atraumatic. Neck: No JVD noted. No carotid bruits. No lymphadenopathy. No thyromegaly. Cardiovascular: S1, S2 heard. No murmurs, gallops, or rubs. Regular rate and rhythm. Respiratory: There are some crackles noted in both pulmonary bases with some wheezing as well. Patient is not using any accessory muscles or having work of breathing. Abdomen: Soft, nontender to palpation. Bowel sounds present. No organomegaly. Extremities: No clubbing, cyanosis, or edema. Peripheral pulses present in both legs. Neurological: Patient is alert and oriented x3. Moves 4 extremities. LABORATORY DATA: White cell count 6.05, hemoglobin 12.1, hematocrit 34.9 and platelets 118,000 with normal BMP except magnesium of 1.4. Troponin's yesterday have been 0.189, and today this morning it is 0.1 25. ASSESSMENT AND PLAN: 1. Acute diastolic heart failure. The patient came to the hospital complaining of some shortness of breath. Apparently, it has been reported that he has history of heart failure with preserved ejection fraction. In any case, we prefer to repeat an echocardiogram. Consult Cardiology, and we will go from there. 2. Abnormal troponin's. The patient is complaining of mild substernal pain that is almost gone, and he reported having had a problem before. I do not know if this is a non ST-segment elevation myocardial infarction, but in any case we will consult Cardiology and we will go from there. 3. Hypertensive heart disease. Blood pressure now is much better controlled. 4. Paroxysmal atrial fibrillation. Currently, this patient is in sinus rhythm. We will continue to monitor this patient closely in the [facility]. 5. Alcohol abuse aware. 6. Active marijuana use. The patient advised to stop using any drugs. 7. Hyperbilirubinemia most likely related to passive congestion versus alcohol abuse. We will continue to monitor BMP. cc: Diogo Henry MD
[2018-11-13] MEDS: MORPHINE IV PRN ×2 (14:52→23:22)
[2018-11-13] MEDS ORDERED: ENTRESTO 24 MG-26 MG TABLET PO ONE (15:00)
[2018-11-13 15:20] LABS: URINE SOURCE CATH
[2018-11-13 15:31] LABS: BILIRUBIN URINE NEGATIVE (NEGATIVE); BLOOD URINE NEGATIVE (NEGATIVE); COLOR YELLOW; GLUCOSE URINE NEGATIVE (NEGATIVE); KETONE URINE NEGATIVE (NEGATIVE); LEUKOCYTES URINE NEGATIVE (NEGATIVE); NITRITE URINE NEGATIVE (NEGATIVE); PH URINE 5.5; PROTEIN URINE 100 mg/dL (NEGATIVE); SP GRAVITY URINE 1.015; TURBIDITY URINE CLEAR (CLEAR); UROBILINOGEN URINE 4 mg/dL (NORMAL)
[2018-11-13 15:32] LABS: UR EPITHELIAL CELLS <10 /HPF (<10); URINE BACTERIA NEGATIVE /HPF; URINE RBC <10 /HPF (<10); URINE WBC <10 /HPF (<10)
--- NOTE | 2018-11-13 17:10 | Diag Imaging Result Doc PS360 ---
EXAM: CHEST-2 VIEWS INDICATION: CHF TECHNIQUE: 2 views COMPARISON: 11/12/2018 FINDINGS: The lungs remain grossly clear. There is no discrete pleural fluid collection or pneumothorax. There is stable cardiomegaly. The central vasculature remains mildly prominent. IMPRESSION: Stable chest. Electronically signed by Dayron Caputo 11/13/2018 5:07 PM
[2018-11-13] MEDS ORDERED: NS 500 ML IV ONE (17:24)
--- NOTE | 2018-11-13 18:36 | CARDIOLOGY CONSULTATION ---
DATE: 11/13/2018 CHIEF COMPLAINT: Shortness of breath. HISTORY OF PRESENT ILLNESS: Mr. Carreon is a 53-year-old black male with a past medical history of atrial fibrillation as well as heart failure. Around 6 to 7 months ago he had an admission to [place] where he had an echo as well as a nuclear scan demonstrating ejection fractions in the 15 to 20% range. The patient reports issues with orthopnea recently. It he sounds like he has not been compliant with medications. In addition, he has had some occasional cocaine use, as well as sodium indiscretion in his diet. The patient does not complain of any chest pain presently. PAST MEDICAL HISTORY: 1. Significant for systolic heart failure. His recent nuclear scan showed fixed inferior defects. His ejection fractions were in the 15 to 20% range. 2. Hypertension. 3. Medication noncompliance. SOCIAL HISTORY: Previous documented use of cocaine and marijuana. Reports quitting alcohol and tobacco use one week ago. FAMILY HISTORY: Sister and mother both have some form of heart disease that he is not entirely clear on. REVIEW OF SYSTEMS: Ten system review of systems is negative except for those things mentioned in the HPI. PHYSICAL EXAMINATION: Vital Signs: He is afebrile. His heart rate is 87. His blood pressure is 157/117. His I's and O's are somewhat incomplete and limited at this point. General: No acute distress. HEENT: Oropharynx is moist. Poor dentition. Eye examination shows pink conjunctivae, white sclerae. Neck: No obvious thyromegaly or thyroid tenderness. Cardiovascular: He sounds to be in a regular rate and rhythm. He does not have any murmurs. He has no lower extremity edema. He has warm and well perfused lower extremities. He has an elevated JVP. Chest: Sounds relatively clear to auscultation bilaterally. He has no increased work of breathing. Abdomen: Soft, nontender, nondistended. No obvious organomegaly. Skin: Warm and dry throughout without any rashes. Neurological: He is moving all extremities well. He has no lateralizing deficits. Psychiatric: He is alert, oriented, pleasant. Normal mood and affect. PERTINENT DATA: His EKG on the at 2048 shows sinus rhythm, 100 beats per minute. He does have PVCs present. There is some ST depression in the lateral leads that appears new compared to EKG in July of 2017. His subsequent EKG occurring on the 20th, this morning shows sinus rhythm, mild ST depression in the lateral leads, occasional PVCs. His chest x-ray demonstrates cardiomegaly as well as pulmonary venous congestion. Lab data: White count is 6. His hematocrit is 34. Platelet count is 119,000. His sodium is 140, potassium 3.6, BUN 15, creatinine is 1. His magnesium level is 1.4. His troponin is 0.127 with a proBNP yesterday of 9,663. TSH is normal. ASSESSMENT: Mr. Carreon is a 53-year-old black male with a history of polysubstance abuse. He presents with an episode of heart failure. PLAN: His ejection fraction was newly reduced as of March of 2018. He does appear to have some new EKG changes. I would be inclined to pursue cardiac catheterization in the near future considering his fixed defects on nuclear scan. Presently we will try to diurese the patient. I will add in an afterload reduction in the form of Entresto. He has had an angioedema reaction on lisinopril, but it would be reasonable to try him on Entresto. I will swap him from metoprolol to Coreg. We will continue to diurese. cc: Jesse Owens MD
[2018-11-13] MEDS: COREG PO SCH (21:42)
[2018-11-14 05:44] LABS: AGAP 13; BUN 14 mg/dL (8-22); CHLORIDE 99 mmol/L (98-107); COSMO 274; CREATININE 1.1 mg/dL (0.7-1.2); ESTIMATED GFR > 60; GLUCOSE 97 mg/dL (70-104); MAGNESIUM 1.5 mg/dL (1.5-2.7); POTASSIUM 3.8 mmol/L (3.5-5.1); SODIUM 137 mmol/L (136-145); TCO2 25 mmol/L (25-35)
[2018-11-14] MEDS: NITROGLYCERIN TOP SCH ×4 (07:00→23:27)
[2018-11-14] MEDS: DUONEB (A & A) INH PRN ×4 (07:59→19:10)
[2018-11-14] MEDS ORDERED: MORPHINE IV PRN (08:31)
[2018-11-14] MEDS: COREG PO SCH ×2 (09:03→21:03)
[2018-11-14] MEDS: ASPIRIN EC PO SCH (09:03)
[2018-11-14] MEDS: LASIX IV SCH ×2 (09:04→21:02)
[2018-11-14] MEDS: ENTRESTO 24 MG-26 MG TABLET PO SCH ×2 (09:04→21:03)
[2018-11-14] MEDS: KLOR-CON PO SCH (09:04)
[2018-11-14] MEDS: NORCO-5 PO PRN (09:04)
--- NOTE | 2018-11-14 10:50 | PROGRESS NOTE ---
DATE: 11/14/2018 SUBJECTIVE: The patient reports breathing better. Reports some pain because of the Etienne catheter. No chest pain noted. OBJECTIVE: Vital Signs: Temperature 97.6 degrees, heart rate 77, respiratory rate 17, blood pressure 150/106, and O2 saturation 100% on 2 L nasal cannula. General: This is a chronically ill- appearing 53-year-old male lying in bed in no acute distress. Cardiovascular: S1, S2 heard. No murmurs, gallops, or rubs. Regular rate and rhythm. Respiratory: Minimal crackles noted in both pulmonary bases with some wheezing as well. The patient is not using any accessory muscles or having work of breathing. Abdomen: Soft. Nontender to palpation. Bowel sounds present. No organomegaly. Extremities: No clubbing, cyanosis, or edema. Peripheral pulses present in both legs. Neurological: Patient alert and oriented x3. Moves all 4 extremities. LABORATORY DATA: Reviewed. ASSESSMENT AND PLAN: 1. Acute systolic congestive heart failure. An echocardiogram done here has documented a decrease of the EF that has been checked, and is 15%. Cardiology has been consulted. They have started him on Entresto. We will continue with diuretics, and also patient will be started on Coreg. At this point, we are going to continue with the same management. He is not complaining of more chest pain. We will follow recommendations from Cardiology. 2. Hypertensive heart disease. Blood pressure is still a little bit high, but with changes made by Cardiology we will see if that is better controlled. 3. Paroxysmal atrial fibrillation. At this point, patient is in sinus rhythm. We will continue to monitor. 4. Alcohol abuse. Aware. 5. Active marijuana use. Patient advised to stop using drugs. 6. Hyperbilirubinemia most likely related to passive congestion versus alcohol abuse. We will continue to monitor. 8. Oliguria. Apparently, the patient was not making enough urine output so we have placed that consult for Urology. We will see what they have to say. 10. Disposition: We will continue to monitor this patient in the [facility]. cc: MD BLADE Ng
[2018-11-14] MEDS ORDERED: MAGNESIUM SULFATE 2 GM/S.W.I. 2 GM/50 ML IVPB IV ONE (14:44)
--- NOTE | 2018-11-14 15:07 | CARDIOLOGY PROGRESS NOTE ---
DATE: 11/14/2018 SUBJECTIVE: Mr. Carreon reports slight improvement in dyspnea. He denies any orthopnea. He continues to have some early satiety. OBJECTIVE: Vital Signs: Afebrile, heart rate 83, blood pressure 147/106. His systolics continue to be elevated in the 140 to 150 range predominantly. His I's and O's are somewhat difficult to track, but do not seem to be having any significant degree of urine output. General: No acute distress. Cardiovascular: He sounds to be in a regular rate and rhythm. He has no obvious murmurs. He has no S3. No lower extremity edema. Chest: Clear with the exception of mild basilar rales. No increased work of breathing. Abdomen: Soft, nontender. PERTINENT DATA: Sodium is 137, potassium 3.8. BUN 14, creatinine is 1.1. His magnesium level is 1.5. ProBNP is 8855. ASSESSMENT: Mr. Carreon a 53-year-old gentleman with a cardiomyopathy. PLAN: I will increase his Lasix to 60 IV b.i.d. I will add in Aldactone 25 mg daily. Continue him on Coreg and Entresto for the time being. He will likely need cardiac catheterization at some point, but this could likely be deferred as an outpatient. Notably his laboratories were checked, including a UDS, and he was positive for opiates and amphetamines and cannabinoids. I discussed with him the amphetamines, and he adamantly denies methamphetamine usage. I have instructed him to avoid any further illicit substances, specifically cocaine and amphetamines, as well as alcohol. cc: Jesse Owens MD
--- NOTE | 2018-11-14 17:29 | NEPHROLOGY CONSULTATION ---
DATE: 11/14/2018 ATTENDING PHYSICIAN: Dr. Grant. CONSULTING PHYSICIAN: Dr. Grant. REASON FOR CONSULTATION: Low urine output. HISTORY OF PRESENT ILLNESS: Mr. Carreon is a 53-year-old, man, who has known congestive heart failure. He states he was admitted to the hospital in [place] at the end of last year for management of this problem. According to the notes he has preserved EF. Last echo in our chart was in 2016, at which time his EF was in the upper 50s. He has a history of alcohol and cocaine use and alcoholic pancreatitis. At any rate, he came into the hospital because of several days of worsening orthopnea, PND, chest discomfort. Dry cough as well. His symptoms were progressive and not abating, and so he sought attention. His initial evaluation in the emergency room disclosed a blood pressure 156/131, heart rate of 98, respiration of 18. His blood pressure has been treated though suboptimally, and he has been treated with diuretics as well. In this context, his urine output was low initially, though he had preserved renal function, and we were asked to see him in consultation. Since the consult was placed, he has made approximately 1.5 L of urine output. He states his chest pain is resolved and shortness of breath is improved. PAST MEDICAL HISTORY: As above. HOME MEDICATIONS: Include labetalol, potassium, furosemide, aspirin. ALLERGIES: Lisinopril. SOCIAL HISTORY.: As above. No longer drinking for the last week. Still uses THC. FAMILY HISTORY: Otherwise noncontributory. REVIEW OF SYSTEMS: Otherwise noncontributory. PHYSICAL EXAMINATION: Vital Signs: Blood pressure 150/106, heart rate 84, respiration 18, afebrile. Generally: No acute distress. Skin: Warm and dry. Eyes: Conjunctivae are pink. Pupils are equal. Neck: Neck veins are not distended. Heart: PMI is nondisplaced. Regular rate and rhythm without gallops, murmurs, rubs. Lungs: Have equal excursion, equal breath sounds. No crackles or wheezes. Abdomen: Soft, nontender. Bowel sounds present. Extremities: Have no edema, clubbing, or cyanosis. IMPRESSION: 1. Low urine output, resolved. 2. Congestive heart failure. Symptoms are improved. His blood pressure is likely contributing. I will advance his carvedilol dose today. No other changes. cc: Demetrius Peterson MD
[2018-11-14] MEDS: LOVENOX SUBQ SCH (21:03)
[2018-11-15] MEDS: NITROGLYCERIN TOP SCH ×3 (05:52→17:49)
[2018-11-15 06:08] LABS: CHLORIDE 101 mmol/L (98-107); POTASSIUM 3.3 mmol/L (3.5-5.1); SODIUM 138 mmol/L (136-145); TCO2 26 mmol/L (25-35)
[2018-11-15 06:09] LABS: AGAP 11; BUN 15 mg/dL (8-22); CALCIUM 8.7 mg/dL (8.8-10.2); COSMO 278; ESTIMATED GFR > 60; GLUCOSE 118 mg/dL (70-104); MAGNESIUM 1.6 mg/dL (1.5-2.7)
[2018-11-15] MEDS: DUONEB (A & A) INH PRN ×4 (07:51→19:37)
[2018-11-15] MEDS: ALDACTONE PO SCH (08:10)
[2018-11-15] MEDS: COREG PO SCH ×2 (08:10→20:18)
[2018-11-15] MEDS: NORCO-5 PO PRN ×2 (08:10→20:32)
[2018-11-15] MEDS: ENTRESTO 24 MG-26 MG TABLET PO SCH ×2 (08:10→20:18)
[2018-11-15] MEDS: ASPIRIN EC PO SCH (08:10)
[2018-11-15] MEDS: LASIX IV SCH ×2 (08:11→20:18)
[2018-11-15] MEDS ORDERED: KLOR-CON PO ONE (08:14)
--- NOTE | 2018-11-15 08:58 | ECHO REPORT ---
ORDER DATE: 11/12/2018 INTERPRETING PHYSICIAN: Dr. Tian REQUESTING PHYSICIAN: CLINICAL INDICATIONS: This is a 53-year-old male with CHF. Optison was injected to optimize visualization of endocardium. M-MODE MEASUREMENTS: Right ventricle: cm. Left ventricle end diastole: 5.7 cm. Left ventricle end systole: 5.1 cm. Posterior wall: 1.2 cm. Interventricular septum: 1.2 cm. Left atrium: 4.5 cm. Aortic root: 3.3 cm. SUMMARY OF 2-DIMENSIONAL IMAGIN. The left ventricular chamber is significantly dilated. The left ventricular systolic function is severely impaired. Global ejection fraction appears to be, by computer tracing, in the order of 20% to 25%. Visually appears to be in the order of 15%. Impairment is global. 2. The left atrium is significantly enlarged. 3. The right-sided chambers are also significantly enlarged. 4. Aortic valve has 3 cusps. They open normally. Color flow mapping is unremarkable. There is low cardiac output. 5. Mitral valve shows mild to moderate degree of regurgitation. 6. Pulse wave Doppler of mitral inflow shows an abnormal E/A ratio with a tall E wave, short A wave and a short deceleration time indicating elevation of left atrial pressure. 7. Tissue Doppler of septal and lateral mitral annulus is significantly impaired at 3 cm per second. E/A prime ratio is significantly elevated. There is severe diastolic dysfunction. 8. A small patent foramen ovale appears to be present. 9. The pulmonic valve is unremarkable. 10.Tricuspid valve shows mild to moderate degree of regurgitation. 11.The pulmonary pressure is estimated at 47 to 52 mmHg. 12.There is no pericardial effusion. CONCLUSIONS: In summary, this study shows: 1. Dilated left ventricle with severely impaired function. Ejection fraction in the range of 20%, no more than 25%, could be as low as 15%. 2. Enlargement of left atrium and right-sided chambers in a moderate to significant degree. 3. Mild to moderate mitral regurgitation. 4. Severe diastolic dysfunction. 5. Pulmonary systolic pressure of 47 to 52 mmHg. 6. Unremarkable aortic valve. 7. This study is consistent with a dilated nonischemic cardiomyopathy. Clinical correlation is recommended. cc: MD Hyacinth Gamino MD
--- NOTE | 2018-11-15 09:27 | PROGRESS NOTE ---
DATE: 11/15/2018 SUBJECTIVE: The patient reports feeling fine. Breathing better. Denies any fever or chills. OBJECTIVE: Vital Signs: Temperature 97.4, heart rate 102, respiratory rate 18, blood pressure 143/108, O2 saturation 96% on 2 L nasal cannula. General: This is a chronically ill-appearing, 53-year-old male, lying in bed, in no acute distress. Cardiovascular: S1, S2 heard. No murmurs, gallops, or rubs. Regular rate and rhythm. Respiratory: Minimal crackles still noted in both pulmonary bases. No wheezing noted today. Patient not using any accessory muscles or having work of breathing. Abdomen: Soft. Nontender to palpation. Bowel sounds present. No organomegaly. Extremities: No clubbing, cyanosis, or edema. Peripheral pulses present in both legs. Neurological: Patient alert, oriented x3. Moves 4 extremities. LABORATORY DATA: The BMP from today shows potassium 3.3 with normal renal function and BNP has decreased from 8855 to 5448 today. ASSESSMENT AND PLAN: 1. Acute systolic congestive heart failure. As per Cardiology, Lasix has been increased from 40 to 60 mg IV q.12 hours. Entresto has been started, and also spironolactone will be started as well. Clinically, patient is doing fine, making good urine, clinically feeling less short of breath. So at this point, we will continue with the same management. 2. Hypertensive heart disease. Blood pressure is definitely much better controlled today. We will continue with the same. 3. Alcohol abuse. Aware. 4. Active marijuana usage. Patient advised again to stop using drugs. 5. Hyperbilirubinemia. This condition is most likely related to passive congestion of the liver versus alcohol abuse. In any case, we will continue to monitor. 6. Oliguria, resolved. Nephrology has been consulted. 7. Disposition. We will continue to monitor this patient in [facility]. We will see this patient requires catheterization on Saturday or can be done as outpatient. Cardiology following. cc: Diogo Henry MD MTDD
[2018-11-15 15:15] LABS: URINE SOURCE VOIDED
[2018-11-15 15:20] LABS: BILIRUBIN URINE NEGATIVE (NEGATIVE); BLOOD URINE MODERATE (NEGATIVE); COLOR YELLOW; GLUCOSE URINE NEGATIVE (NEGATIVE); KETONE URINE NEGATIVE (NEGATIVE); LEUKOCYTES URINE NEGATIVE (NEGATIVE); NITRITE URINE NEGATIVE (NEGATIVE); PROTEIN URINE TRACE mg/dL (NEGATIVE); SP GRAVITY URINE 1.008; TURBIDITY URINE CLEAR (CLEAR); UR EPITHELIAL CELLS <10 /HPF (<10); URINE BACTERIA NEGATIVE /HPF; URINE RBC TNTC /HPF (<10); URINE WBC <10 /HPF (<10); UROBILINOGEN URINE 6 mg/dL (NORMAL)
--- NOTE | 2018-11-15 17:32 | CARDIOLOGY PROGRESS NOTE ---
DATE: 11/15/2018 SUBJECTIVE: Patient denies shortness of breath on room air. There has been no chest pain. OBJECTIVE: Vital Signs: Blood pressure 136/97, heart rate 81, oxygen saturation 100% on room air. Neck: Jugular venous distention is evident consistent with significantly elevated central venous pressure. Chest: Clear to auscultation bilaterally. Cardiac Exam: Reveals a regular rate and rhythm without appreciable murmur or gallop. Extremities: Without edema. LABORATORY DATA: Includes a sodium 138, potassium 3.3, chloride 101, carbon dioxide 26, BUN 15, creatinine 1, glucose 118. Pro-B natriuretic peptide level 5448. IMPRESSION: 1. Acute on chronic systolic heart failure. 2. Cardiomyopathy. 3. Hypertension. 4. Inconsistent medical compliance. 5. Polysubstance abuse. RECOMMENDATIONS: 1. Continue diuresis with intravenous Lasix. 2. Continue current cardiovascular regimen, otherwise unchanged. 3. Ultimately consideration being given to further evaluation with cardiac catheterization/coronary angiography. cc: Carlos Javed MD
[2018-11-15] MEDS: TYLENOL PO PRN (17:49)
--- NOTE | 2018-11-15 19:54 | NEPHROLOGY PROGRESS NOTE ---
DATE: 11/15/2018 SUBJECTIVE: He is feeling well. Resting in bed. No shortness of breath or other complaints. OBJECTIVE: Vital Signs: Blood pressure 136/97, heart rate 81, respirations 17, afebrile. Generally: No acute distress. Skin: Warm and dry. Neck: Neck veins are not distended. Heart: Regular with S4. Lungs: Equal. No crackles. Abdomen: Soft, nontender. Bowel sounds present. Extremities: No edema, clubbing or cyanosis. IMPRESSION: 1. Oliguria. Resolved. 2. Hypertension. Improved. I will titrate his Coreg to 25 mg b.i.d. 3. Proteinuria. We will check urine protein/creatinine ratio. cc: Demetrius Peterson MD
[2018-11-15] MEDS: LOVENOX SUBQ SCH (20:18)
[2018-11-16] MEDS: NITROGLYCERIN TOP SCH ×5 (01:00→23:22)
[2018-11-16] MEDS: LOVENOX SUBQ SCH ×3 (01:00→21:46)
[2018-11-16] MEDS: DUONEB (A & A) INH PRN ×4 (02:57→19:48)
[2018-11-16 05:46] LABS: BASO# 0.03 X1000 (0.0-0.2); BASO% 0.7 % (0.0-0.8); EOS% 4.6 % (0.0-10.0); HEMATOCRIT 38.3 % (42.0-52.0); HEMOGLOBIN 12.9 g/dL (14.0-18.0); LYMPH# 1.88 X1000 (1.2-3.4); LYMPH% 43.3 % (20.5-51.1); MCH 27.9 PG (27-31); MCHC 33.7 g/dL (33-37); MCV 82.7 FL (81-99); MONO# 0.55 X1000 (0.11-0.59); MONO% 12.7 % (1.7-9.3); MPV 12.9 FL (7.4-10.4); NEUT# 1.68 X1000 (1.4-6.5); NEUT% 38.7 % (42.2-75.2); PLT 140 X1000 (130-400); RBC 4.63 XMIL (4.7-6.1); RDW 15.7 % (11.5-14.5); WBC 4.34 X1000 (4.8-10.8)
[2018-11-16 06:21] LABS: AGAP 12; ALBUMIN 3.4 g/dL (3.5-5.0); BUN 16 mg/dL (8-22); CALCIUM 9.3 mg/dL (8.8-10.2); CHLORIDE 101 mmol/L (98-107); COSMO 277; ESTIMATED GFR > 60; GLUCOSE 105 mg/dL (70-104); PHOSPHORUS 4.1 mg/dL (2.7-4.5); POTASSIUM 3.9 mmol/L (3.5-5.1); SODIUM 138 mmol/L (136-145); TCO2 25 mmol/L (25-35)
[2018-11-16] MEDS: ALDACTONE PO SCH (08:33)
[2018-11-16] MEDS: ASPIRIN EC PO SCH (08:33)
[2018-11-16] MEDS: ENTRESTO 24 MG-26 MG TABLET PO SCH ×2 (08:33→20:23)
[2018-11-16] MEDS: COREG PO SCH ×2 (08:34→20:23)
[2018-11-16] MEDS: LASIX IV SCH ×2 (08:34→20:22)
[2018-11-16] MEDS: NORCO-5 PO PRN ×2 (08:55→20:22)
--- NOTE | 2018-11-16 09:28 | PROGRESS NOTE ---
DATE: 11/16/2018 SUBJECTIVE: The patient reports breathing better but intermittently, he complains of some sharp pain located in the substernal area. Denies any other complaints. OBJECTIVE: Vital Signs: Temperature 98.1 degrees, heart rate 78, respiratory 16, blood pressure 140/99, O2 saturation 100% on 2 L nasal cannula. General Examination: This is a chronically ill- appearing, 53-year-old male, lying in bed, in no acute distress. HEENT: Head is normocephalic, atraumatic. Neck: No JVD noted. No carotid bruits. No lymphadenopathy. No thyromegaly. Cardiovascular: S1, S2 heard. No murmurs, gallops, or rubs. Regular rate and rhythm. Respiratory Exam: There are still minimal crackles noted in both pulmonary bases but no wheezing noted today. Patient not using accessory muscles or having work of breathing. Abdomen: Soft, nontender to palpation. Bowel sounds present. No organomegaly. Extremities: No clubbing, cyanosis, or edema. Peripheral pulses present in both legs. Neurological: Patient is alert and oriented. LABORATORY DATA: Reviewed. ASSESSMENT AND PLAN: 1. Acute on chronic systolic congestive heart failure. We will continue with Lasix 60 mg IV q.12 hours. Also, patient has been started by Cardiology with Entresto and spironolactone. Clinically, patient is breathing better. At this point, we will continue with same management. Patient is also complaining of some substernal chest pain that comes and goes on and off. At this point, I will leave at the discretion with the Cardiology service to decide when they want to do a left heart catheterization. 2. Hypertensive heart disease. Blood pressure is definitely much better controlled. We will continue with the same management. 3. Alcohol abuse. Aware. 4. Active marijuana use. Patient advised to stop using recreational drugs. 5. Oliguria, resolved. DISPOSITION: At this point, we will see if the patient requires catheterization Saturday or not. cc: Diogo Henry MD
[2018-11-16] MEDS: TYLENOL PO PRN (11:58)
--- NOTE | 2018-11-16 12:54 | PROGRESS NOTE ---
DATE: 11/16/2018 SUBJECTIVE: Patient continues without chest discomfort or dyspnea on room air. OBJECTIVE: Blood pressure 118/87, heart rate 73, oxygen saturation 100% on room air. Jugular venous distention is present, consistent with elevated central venous pressure. Chest is clear to auscultation. Cardiac Examination: Reveals a regular rate and rhythm without appreciable murmur or gallop. Extremities: Without edema. Laboratory Data: Includes a white blood cell count of 4.34, hematocrit 38.3, hemoglobin 12.9, platelet count 140,000. Sodium 138, potassium 3.9, chloride 101, carbon dioxide 25, BUN 16, creatinine 1.0, glucose 105. IMPRESSION: 1. Acute on chronic systolic heart failure, improving with diuresis. Patient still manifests some residual volume excess. 2. Cardiomyopathy with severely depressed left ventricular systolic function. 3. Hypertension. 4. Inconsistent medical compliance. 5. Polysubstance abuse. RECOMMENDATIONS: 1. Continue intravenous Lasix today and transition to oral Lasix tomorrow. 2. Continue current cardiovascular regimen, otherwise unchanged. 3. Ultimately, consideration being given to further evaluation with cardiac catheterization/coronary angiography possibly as an outpatient. cc: Carlos Javed MD
[2018-11-17 05:43] LABS: BASO# 0.02 X1000 (0.0-0.2); BASO% 0.5 % (0.0-0.8); EOS# 0.23 X1000 (0.0-0.7); EOS% 5.4 % (0.0-10.0); HEMATOCRIT 37.6 % (42.0-52.0); HEMOGLOBIN 12.8 g/dL (14.0-18.0); LYMPH# 1.86 X1000 (1.2-3.4); LYMPH% 43.5 % (20.5-51.1); MCH 28.1 PG (27-31); MCV 82.5 FL (81-99); MONO# 0.46 X1000 (0.11-0.59); MONO% 10.7 % (1.7-9.3); MPV 13.1 FL (7.4-10.4); NEUT# 1.71 X1000 (1.4-6.5); NEUT% 39.9 % (42.2-75.2); PLT 141 X1000 (130-400); RBC 4.56 XMIL (4.7-6.1); RDW 15.5 % (11.5-14.5); WBC 4.28 X1000 (4.8-10.8)
[2018-11-17] MEDS: NITROGLYCERIN TOP SCH (06:02)
[2018-11-17 06:05] LABS: AGAP 12; ALBUMIN 3.4 g/dL (3.5-5.0); BUN 20 mg/dL (8-22); CALCIUM 9.4 mg/dL (8.8-10.2); CHLORIDE 98 mmol/L (98-107); COSMO 280; CREATININE 1.1 mg/dL (0.7-1.2); ESTIMATED GFR > 60; GLUCOSE 99 mg/dL (70-104); PHOSPHORUS 4.7 mg/dL (2.7-4.5); POTASSIUM 3.6 mmol/L (3.5-5.1); SODIUM 139 mmol/L (136-145); TCO2 29 mmol/L (25-35)
[2018-11-17 08:09] VITALS: BP 133/107
[2018-11-17] MEDS: DUONEB (A & A) INH PRN (08:14)
[2018-11-17] MEDS: COREG PO SCH (08:37)
[2018-11-17] MEDS: ALDACTONE PO SCH (08:38)
[2018-11-17] MEDS: ASPIRIN EC PO SCH (08:38)
[2018-11-17] MEDS: ENTRESTO 24 MG-26 MG TABLET PO SCH (08:38)
[2018-11-17] MEDS: NORCO-5 PO PRN (08:41)
[2018-11-17] MEDS ORDERED: HYDROCHLOROTHIAZIDE PO ONE (08:49)
[2018-11-17] MEDS ORDERED: LASIX PO SCH (09:00)
--- NOTE | 2018-11-17 09:14 | NEPHROLOGY PROGRESS NOTE ---
DATE: 11/17/2018 SUBJECTIVE: Mr. Carreon is resting quietly in bed. Head of the bed is slightly elevated. No complaints. LABORATORY DATA: Sodium 139, potassium 3.6, chloride 98, CO2 of 29, BUN 20, creatinine 1.1, glucose 99, anion gap is 12, calcium 9.4, phosphorus 4.7, albumin is 3.4. White count 4.28, hemoglobin 12.8, hematocrit 37.6, with a platelet count of 141,000. PHYSICAL EXAMINATION: Vital Signs: Temperature 97.5 degrees, blood pressure 139/112, heart rate 76, respirations 14. He is on room air, last recorded saturation 100%. He has had 3992 in. He has had 3200 out to void. General: This is a 53-year-old male. He is currently resting quietly in bed. He denies any pain. No increased work of breathing. No increased swelling. HEENT: Normocephalic, atraumatic. Conjunctivae pale pink. He has JEFFRY. Mucous membranes are dry. Neck: Supple. Trachea midline. There is no evidence of JVD. Cardiovascular: He is regular rate and rhythm. No murmur or gallop appreciated. Lungs: Clear to auscultation anterior on room air. Abdomen: Soft, nontender. Positive bowel sounds. Genitourinary: Not inspected. Adequate urine out to void. Extremities: No edema. No clubbing or cyanosis. Neurological: Alert and oriented x3. ASSESSMENT AND PLAN: 1. Acute kidney injury with oliguria has resolved. Blood pressure remains slightly elevated. He remains on Coreg 25 mg twice daily, Aldactone 25 mg daily, and Entresto. We will stop his Lasix, and start him on hydrochlorothiazide 25 mg, and follow up in our office in 2 to 3 weeks on discharge. Otherwise, we will sign off and remain available if indicated. 2. Hypertension. This has improved. Recommendation of continuing to hold on any changes to his current blood pressure medications, allowing this to percolate. We will follow up in our office within 2 to 3 weeks after discharge with labs. We will go ahead and stop his Lasix 40 mg by mouth, and change this to hydrochlorothiazide 25 mg po. Further recommendation per cardiology. 3. Proteinuria. The patient has minimum protein 27.5 mg on urinalysis, down to trace when repeated. We will follow in our office. I would like to thank you for allowing us to follow with this patient. Dictated by LUCRETIA Kaba for Demetrius Peterson MD Face to face encounter, data reviewed, discussed with Beto Richter on 11/17/18. I agree with the above assessment and plan of care. cc: LUCRETIA Kaba MD [facility]
--- NOTE | 2018-11-17 13:49 | DISCHARGE SUMMARY ---
ADMISSION DATE: 11/12/2018 DISCHARGE DATE: 11/17/2018 CONSULTATIONS: 1. Dr. Peterson with Nephrology. 2. Dr. Jesse Owens with Cardiology. PERTINENT PROCEDURES: 1. Initial chest x-ray. Interval development of cardiomegaly and mild pulmonary venous congestion. 2. Echocardiogram. Dilated left ventricle with severely impaired function. EF of 20%, and one of 25%, could be as low as 15%, severe diastolic dysfunction, pulmonary systolic pressure 47 to 52 mmHg consistent with dilated nonischemic cardiomyopathy. 3. Abdominal ultrasound with small amount of ascites. DISCHARGE DIAGNOSES: 1. Acute on chronic systolic congestive heart failure. The patient has improved with diuresis. 2. Cardiomyopathy with severely depressed left ventricular systolic function. We will continue on current cardiovascular regimen. 3. Hypertension. Continue home medications. 4. Polysubstance abuse. The patient has been educated on abstinence. 5. Medical noncompliance. The patient has been educated on the need to take his medications as appropriate. 6. Acute kidney injury with oliguria now resolved. The patient will continue on Coreg, Aldactone, and. Entresto His Lasix has been stopped. He was started on hydrochlorothiazide. Will follow up with Dr. Peterson in 2 to 3 weeks. 7. Proteinuria. Again, we will follow up with Dr. Peterson. HOSPITAL COURSE: Briefly, Mr. Carreon is a 53-year-old gentleman who has a past medical history of atrial fibrillation, heart failure, hypertensive heart disease, chronic alcohol, and cocaine abuse with prior alcoholic pancreatitis as well as a prior history of suicide attempt. He came to the ED because of new onset 3 to 4 day history of orthopnea and a 2-day history of PND associated with retrosternal chest pain that was exacerbated when he coughs. He was found to be in acute heart failure exacerbation with abnormal troponin. Repeat of his echocardiogram showed cardiomyopathy with a severely depressed LV function. He was continued to be diuresed with Lasix as well as started on a cardiovascular regimen. Nephrology was brought on board for low urine output and proteinuria. He was diuresed appropriately. Nephrology has taken him off his Lasix, and started him on hydrochlorothiazide. They will follow up with him back in the office in 2 to 3 weeks. He has been educated on medical noncompliance as well as abstinence of polysubstance abuse. Cardiology would like to follow up with him on an outpatient basis for possible heart cath. Mr. Carreon is appropriate for discharge home today. VITAL SIGNS: Temperature 97.3 degrees, heart rate 75, respirations 16, blood pressure 133/107, and O2 is 98% on room air. DISCHARGE DIET: Healthy heart. DISCHARGE MEDICATIONS: 1. Aspirin 81 mg p.o. every morning. 2. Potassium chloride 10 mEq p.o. b.i.d. 3. Aldactone 25 mg p.o. daily. 4. Coreg 25 mg p.o. b.i.d. 5. DuoNeb 3 mL inhaled q.4 hours p.r.n. 6. Entresto 24-26 mg tablet 1 each p.o. b.i.d. 7. Lasix 40 mg p.o. b.i.d. 8. [place] 5 1 each p.o. q.4 hours p.r.n. DISPOSITION: Mr. Carreon is being discharged back home with self care. He is to continue to follow his cardiovascular regimen, and follow up with Nephrology in the next 2 to 3 weeks. Follow up with Cardiology on 12/04. He would also follow up with his primary care provider, Franny Flores. He has been educated on abstinence of polysubstance abuse. Dictated by LUCRETIA Chand for Diogo Henry MD cc: MD Demetrius Ng MD Peter Johnson, MD
[2018-11-18] MEDS ORDERED: HYDROCHLOROTHIAZIDE PO SCH (09:00)
== END 2018-11-17 10:30 | disposition home or self-care (01) | DRG 292 ==
LOC: ED 20:44 → 3S 23:13 → SUATTDRO 23:13 → 3S 11-13 14:42
PROVIDERS: ATTEND Internal Medicine
CPT/HCPCS: 71010; 71020; 71045; 71046; 76700; 80048; 80053; 80069; 80101; 80301; 80307; 80324; 80345; 80346; 80353; 80358; 80361; 80365; 81001; 82248; 82550; 82570; 82607; 82746; 83735; 83880; 83992; 84100; 84156; 84443; 84484; 85025; 85610; 93005; 93010; 93306; 94640; 94760; 94761; 96374; 96375; 99285; A9270; C8929; G0431; G0434; G0479; G0480; J1650; J1940; J2270; J3475; Q9957

== ENCOUNTER 2019-03-04 08:10 | Inpatient (IN) ==
[2019-03-04] MEDS ORDERED: SODIUM CHLORIDE 0.9% INJ ONE (09:32)
[2019-03-04] MEDS ORDERED: ZOFRAN IV ONE ×2 (09:32→11:43)
[2019-03-04] MEDS ORDERED: PEPCID IV ONE (09:32)
[2019-03-04] MEDS ORDERED: NS 500 ML IV ONE (09:32)
--- NOTE | 2019-03-04 09:33 | PROVIDER DOCUMENTATION ---
HPI-Abdominal Pain/GI Problem - General Chief Complaint: Abdominal Pain Stated Complaint: CHF PT, SOB, HEART SKIPPING Time Seen by Provider: 03/04/19 09:09 Source: patient Allergies/Adverse Reactions: Patient Allergies Allergy/AdvReac Type Severity Reaction Status Date / Time lisinopril Allergy ANAPHYLAXIS Verified 03/04/19 08:30 Home Medications: Home Medication List Medication Instructions Recorded Confirmed Last Taken Type Aspirin [Aspir-Low] 1 tab PO QAM 11/12/18 03/04/19 03/03/19 History Potassium Chloride 1 tab PO BID 11/12/18 03/04/19 03/03/19 History Albuterol 2.5MG/Ipratrop 0.5MG 3 ml INH Q4H PRN PRN #60 neb 11/17/18 03/04/19 03/03/19 Rx [Duoneb (A & A)] Carvedilol [Coreg] 25 mg PO BID #60 tab 11/17/18 03/04/19 03/03/19 Rx Furosemide [Lasix] 40 mg pe PO BID #60 tab 11/17/18 03/04/19 03/03/19 Rx Sacubitril/Valsartan [Entresto 24 1 ea PO BID #60 tab 11/17/18 03/04/19 03/03/19 Rx mg-26 mg Tablet] Spironolactone [Aldactone] 25 mg PO DAILY #90 tab 11/17/18 03/04/19 02/25/19 Rx - History of Present Illness-ABD Nature of Presenting Problems: 53yom presents to ED c/o upper abd pain, nausea, and intermittent chest pain x2 days. He denies fever/chills/diarrhea/back pain/dysuria/SOB/cough. Abdominal Pain Onset Location: reports: epigastric Pain Radiation: reports: no radiation Quality of Pain: reports: pressure, sharp Severity in ED: reports: moderate Onset/Duration: reports: gradual, 2 days ago Timing: reports: still present Activities at Onset: reports: none Exposure to sick contacts?: No Modifying Factors: improves with: nothing Associated Symptoms: reports: chest pain, nausea Bruising or Bleeding Gums?: No Similar Symptoms Previously?: No Recently seen or treated by another doctor?: No Review of Systems - Adult - REVIEW OF SYSTEMS - ADULT Constitutional: reports: no symptoms reported Eyes: reports: no symptoms reported Ears, Nose, Mouth & Throat: reports: no symptoms reported Cardiovascular: reports: no symptoms reported Respiratory: reports: no symptoms reported Gastrointestinal: reports: see HPI, abdominal pain, nausea Genitourinary: reports: no symptoms reported Musculoskeletal: reports: no symptoms reported Integumentary: reports: no symptoms reported Neurological: reports: no symptoms reported Psychiatric: reports: no symptoms reported Endocrine: reports: no symptoms reported Hematologic/Lymphatic: reports: no symptoms reported Allergic/Immunologic: reports: no symptoms reported All Other Systems: Reviewed and Negative Past History - Adult - PAST MEDICAL HISTORY-ADULT Review of Records: reports: Old Records Reviewed, Nursing Assessment Review, Medications Reviewed, Social history reviewed & non-contributory. Major Childhood Illnesses: reports: denies history Cardiovascular: reports: A-Fib, HTN Respiratory: reports: asthma Gastrointestinal: reports: pancreatitis Genitourinary: reports: denies history Musculoskeletal: reports: denies history Neurological: reports: denies history Psychiatric: reports: denies history Endocrine/Immune: reports: denies history Other Conditions: reports: denies history - PRIOR SURGERIES/PROCEDURES Surgical/Procedure History: reports: none - IMMUNIZATION STATUS Childhood Immunizations: See Nurse Assessment Flu Vaccine: See Nurse Assessment - FAMILY HISTORY Family History: reviewed, not pertinent - SOCIAL HISTORY Smoking: non-smoker Living Situation: family Physical Exam-General - PHYSICAL EXAM-ADULT Initial Vital Signs Reviewed: Yes - CONSTITUTIONAL General Appearance: appears well, alert, no apparent distress - EYES Eyes: pink conjunctivae, anisocoria - HEAD, EARS, NOSE, MOUTH & THROAT HENMT: normocephalic/atraumatic, normal ENT inspection, TMs normal, pharynx normal, other (Dry MM) - NECK Neck: non-tender, full range of motion, supple, normal inspection - RESPIRATORY Respiratory: chest non-tender, lungs clear, normal breath sounds - CARDIOVASCULAR Cardiovascular: normal peripheral pulses, regular rate, rhythm - GASTROINTESTINAL (ABDOMEN) Abdominal Exam: normal bowel sounds, non tender, soft, no organomegaly - LYMPHATIC Lymphatic: no adenopathy - MUSCULOSKELETAL Back Exam: normal inspection, no CVA tenderness Extremity: normal range of motion, non-tender, normal gait, normal inspection - SKIN Integumentary: normal color, normal turgor, warm/dry - 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, grossly normal, no motor/sensory deficits - PSYCHIATRIC Psych/Mental Status: normal mood/affect, normal thought content, normal thought process, oriented x 3 Progress - PLAN OF CARE/RESULTS Progress/Plan/Lab Results: Vital Signs - 8 hr 03/04/19 08:19 Temperature 97.3 F L Pulse Rate 94 H Respiratory Rate 16 Blood Pressure 173/125 O2 Sat by Pulse Oximetry 99 Orders Category Date Time Status CHEST-PORTABLE [RAD] Stat Exams 03/04/19 09:31 Ordered AMYLASE [CHEM] Stat Lab 03/04/19 09:31 Uncollected CBC WITH DIFF [HEME] Stat Lab 03/04/19 09:31 Uncollected COMPREHENSIVE METABOLIC PANEL [CHEM] Stat Lab 03/04/19 09:31 Uncollected LIPASE [CHEM] Stat Lab 03/04/19 09:31 Uncollected TROPONIN T Stat Lab 03/04/19 09:31 Uncollected URINALYSIS W/POSS RFLX CULT [URINALYSIS] Stat Lab 03/04/19 09:31 Uncollected Famotidine [Pepcid] Med 03/04/19 09:32 Once 20 mg IV NOW ONE Ns 500 ml IV Bolus X1 Med 03/04/19 09:32 Ordered 0.9% Sodium Chloride Inj [Ns] 500 ml IV 999 mls/hr Ondansetron [Zofran] Med 03/04/19 09:32 Once 4 mg IV NOW ONE Sodium Chloride 0.9% Med 03/04/19 09:32 Once 5 - 10 ml INJ NOW ONE EKG [EKG] Stat Ther 03/04/19 09:31 Ordered Result Diagrams: 03/04/19 09:35 03/04/19 09:35 - REASSESSMENT Reassessment #1 Time Reassessed: 12:27 (Spoke [facility] Hospitalist service MICROSCOPIST who accepts patient in admit to Dr. Caicedo.) - CT/MRI 1 CT Study: Abdomen, Pelvis Impression: See EMR Report (CT ABD/PELVIS W/IV CONT ONLY - 03/04/2019 INDICATION: upper abd pain, vomiting, elevated amylase/lipase COMPARISON: None FINDINGS: There is cardiomegaly. The lung bases are clear. There is severe inflammatory edema about the pancreas diffusely. No drainable fluid collections. Small benign left renal cyst. Other abdominal organs are all normal. Normal gallbladder. No biliary dilation. There is mild constipation. No bowel obstruction or inflammation. Normal appendix. Urinary bladder, prostate, and rectum are normal. Bones are intact and normally mineralized. IMPRESSION: Acute pancreatitis, without complication. Mild constipation. This exam was performed using automated exposure control, adjustment of mA or kV according to patient size, and/or use of iterative reconstruction technique Electronically signed by Pj Farfan 03/04/2019 11:29 AM 03/04/19 1129 Interpreting Physician: Pj Farfan MD Dictated Date/Time: 03/04/19 1128) Departure - Departure Date of Disposition Decision: 03/04/19 Time of Disposition Decision: 12:28 DIAGNOSIS: Acute pancreatitis Qualifiers: Pancreatitis type: unspecified pancreatitis type Acute pancreatitis complication: unspecified Qualified Code(s): K85.90 - Acute pancreatitis without necrosis or infection, unspecified Disposition: ADMITTED INPATIENT 09 Certified Medical Emergency: Emergent Condition: Stable Referrals and Follow-Ups: Franny Flores CRNP [Primary Care Provider] - - Critical Care Note This patient required my direct & personal management of CC.: No Attestation - Physician/ ADALI Attestation Patient care was provided by Advanced Practice Provider:: Yes Advanced Practice Provider:: Meghan Burris Advanced Practice Provider documentation review:: The Mid-level provider documentation, treatment plan and medical decision making was reviewed by the physician who agrees with all treatment and medical decision making by the MLP. The physician spent face to face time with patient:: No Advanced Practice Provider documentation review:: Supervising physician onsite and consulted in the evaluation and care of this patient. The physician did not have a face to face encounter with the patient.
[2019-03-04 09:43] LABS: URINE SOURCE CLEAN CATCH
--- NOTE | 2019-03-04 09:45 | Diag Imaging Result Doc PS360 ---
CHEST-PORTABLE - 03/04/2019 INDICATION: nausea, HTN COMPARISON: 11/13/2018 FINDINGS: The lungs are normally expanded and clear. Heart size and mediastinal contours are normal. No pneumothorax or pleural effusion. IMPRESSION: Negative exam. Electronically signed by Pj Farfan 03/04/2019 9:43 AM
[2019-03-04 09:47] LABS: BASO# 0.01 X1000 (0.0-0.2); BASO% 0.2 % (0.0-0.8); EOS# 0.07 X1000 (0.0-0.7); EOS% 1.1 % (0.0-10.0); HEMOGLOBIN 15.7 g/dL (14.0-18.0); IMM GRAN# 0.02 X1000 (0.0-0.04); IMM GRAN% 0.3 % (0.0-0.5); LYMPH# 0.87 X1000 (1.2-3.4); LYMPH% 13.8 % (20.5-51.1); MCH 30.3 PG (27-31); MCHC 34.1 g/dL (33-37); MCV 88.8 FL (81-99); MONO# 0.68 X1000 (0.11-0.59); MONO% 10.8 % (1.7-9.3); MPV 11.3 FL (7.4-10.4); NEUT# 4.66 X1000 (1.4-6.5); NEUT% 73.8 % (42.2-75.2); PLT 141 X1000 (130-400); RBC 5.18 XMIL (4.7-6.1); RDW 12.9 % (11.5-14.5); WBC 6.31 X1000 (4.8-10.8)
[2019-03-04 09:48] LABS: BILIRUBIN URINE NEGATIVE (NEGATIVE); BLOOD URINE NEGATIVE (NEGATIVE); COLOR YELLOW; GLUCOSE URINE NEGATIVE (NEGATIVE); KETONE URINE NEGATIVE (NEGATIVE); LEUKOCYTES URINE NEGATIVE (NEGATIVE); NITRITE URINE NEGATIVE (NEGATIVE); PH URINE 6.5; PROTEIN URINE 100 mg/dL (NEGATIVE); SP GRAVITY URINE 1.011; TURBIDITY URINE CLEAR (CLEAR); UROBILINOGEN URINE NORMAL (NORMAL)
[2019-03-04 09:50] LABS: UR EPITHELIAL CELLS <10 /HPF (<10); URINE BACTERIA NEGATIVE /HPF; URINE RBC <10 /HPF (<10); URINE WBC <10 /HPF (<10)
--- NOTE | 2019-03-04 09:50 | EKG Report ---
Test Performed on : 03/04/2019 09:45:12 AM Test Reason : abd pain Blood Pressure : / mmHG Vent. Rate : 081 BPM Atrial Rate : 081 BPM P-R Int : 164 ms QRS Dur : 090 ms QT Int : 408 ms P-R-T Axes : 067 -05 045 degrees QTc Int : 473 ms Normal sinus rhythm. Septal infarct (cited on or before 12-AUG-2017) ST & T wave abnormality, consider lateral ischemia Abnormal ECG When compared with ECG of 13-NOV-2018 06:49, No significant change was found Unconfirmed Result
[2019-03-04 10:08] LABS: AGAP 14; ALB/GLOB RATIO 1.5; ALBUMIN 4.3 g/dL (3.5-5.0); ALKALINE PHOSPHATASE 61 U/L (32-122); AMYLASE 233 U/L (20-200); BUN 15 mg/dL (8-22); CHLORIDE 100 mmol/L (98-107); COSMO 281; CREATININE 0.8 mg/dL (0.7-1.2); ESTIMATED GFR > 60; GLUCOSE 115 mg/dL (70-104); GOT 28 U/L (10-34); GPT 19 U/L (10-44); POTASSIUM 3.6 mmol/L (3.5-5.1); SODIUM 140 mmol/L (136-145); TCO2 26 mmol/L (25-35); TOTAL PROTEIN 7.1 g/dL (6.3-8.3)
[2019-03-04 10:12] LABS: LIPASE 450 U/L (13-60)
--- NOTE | 2019-03-04 10:17 | ED EKG INTERP ---
This chart was entered by Harriett Blanc Scribe, acting as scribe for Dio Bright MD. EKG Interpretation - EKG Time of EKG reading by physician:: 09:45 EKG Read and Signed by:: Dio Bright EKG Interpretation (*Must complete 3 of following elements*): Abnormal Rate: 81 Rhythm: nsr [place]: normal QRS: normal [place] Interval: normal Comments: st and t wave abnormality, consider lateral ischemia/septal infarct,age ? Attestation - Physician/ ADALI Attestation Patient care was provided by Advanced Practice Provider:: Yes Advanced Practice Provider documentation review:: The Mid-level provider documentation, treatment plan and medical decision making was reviewed by the physician who agrees with all treatment and medical decision making by the MLP. The physician spent face to face time with patient:: No Advanced Practice Provider documentation review:: Supervising physician onsite and consulted in the evaluation and care of this patient. The physician did not have a face to face encounter with the patient. This chart was documented by the indicated scribe, (Harriett Blanc Scribe) and accurately reflects the services I performed and decisions made by me, Dio Bright MD, as attested by the provider's signature.
--- NOTE | 2019-03-04 11:31 | Diag Imaging Result Doc PS360 ---
CT ABD/PELVIS W/IV CONT ONLY - 03/04/2019 INDICATION: upper abd pain, vomiting, elevated amylase/lipase COMPARISON: None FINDINGS: There is cardiomegaly. The lung bases are clear. There is severe inflammatory edema about the pancreas diffusely. No drainable fluid collections. Small benign left renal cyst. Other abdominal organs are all normal. Normal gallbladder. No biliary dilation. There is mild constipation. No bowel obstruction or inflammation. Normal appendix. Urinary bladder, prostate, and rectum are normal. Bones are intact and normally mineralized. IMPRESSION: Acute pancreatitis, without complication. Mild constipation. This exam was performed using automated exposure control, adjustment of mA or kV according to patient size, and/or use of iterative reconstruction technique Electronically signed by Pj Farfan 03/04/2019 11:29 AM
[2019-03-04] MEDS ORDERED: MORPHINE IV ONE (11:43)
[2019-03-04] MEDS ORDERED: ZOFRAN IV PRN (12:59)
[2019-03-04] MEDS ORDERED: ATARAX PO PRN (13:03)
[2019-03-04] MEDS ORDERED: ROBAXIN PO PRN (13:03)
[2019-03-04] MEDS ORDERED: ATIVAN IV PRN (13:03)
--- NOTE | 2019-03-04 13:35 | HISTORY AND PHYSICAL ---
HISTORY: This is a 53-year-old patient who is usually followed by Franny Flores. I am not sure who is following him at this time. A 53-year-old with past medical history of atrial fibrillation that I think was paroxysmal, heart failure with preserved ejection fraction, hypertensive heart disease, chronic alcohol and cocaine abuse, and prior alcoholic hepatitis. He has had a prior history of suicide attempt. He presented at this time, and said he started drinking again. Two or 3 days ago, started having some epigastric and abdominal pain which has intensified. It hurts mostly in the middle epigastric area but the left upper quadrant is very tender. He is nauseated. Denies fever or chills. ALLERGIES: Lisinopril which causes angioedema. FAMILY HISTORY: Sister and mother both have heart disease. No diabetes in first-degree relatives. PAST SURGICAL HISTORY: Prior elective cardioversion. No history of cholecystectomy. SOCIAL HISTORY: He stopped drinking alcohol and tobacco in the past, but he is back to drinking alcohol at this time. He does use marijuana, and he has a history of cocaine use. REVIEW OF SYSTEMS: He does not report weight loss or gain. No change in his bowels. No change in visual or hearing acuity. No lymphadenopathy that he has appreciated. No complaints of rash. No focal neurologic changes. PHYSICAL EXAMINATION: Temperature 97.3 degrees, pulse 79, respirations 19, and blood pressure 176/126. HEENT: Pupils are equal and round. LUNGS: Clear in all lung nelson. CARDIOVASCULAR: Regular rhythm and rate without murmur or S3. ABDOMEN: Soft. Tender in the epigastrium and left upper quadrant. SKIN: Warm and dry. Weight 149 pounds. LABORATORY DATA: White count 6310, hematocrit 46, and platelet count 141,000. Sodium 140, potassium 3.6, chloride 100, BUN 15, creatinine 0.8. Blood sugar 115, AST 28, ALT 19, amylase 233, and lipase 450. Urinalysis unremarkable. Chest x-ray negative exam. ASSESSMENT AND PLAN: 1. Pancreatitis. I presume this is alcoholic pancreatitis. We will get an ultrasound of his abdomen tomorrow. He had abdominal and pelvic CT, and it showed acute pancreatitis without complication. Mild constipation. 2. History of hypertension. 3. Hypertensive heart disease or congestive heart failure with preserved ejection fraction. 4. Past history of cocaine use. I am not sure if we have a drug screen, but we will get a urine for toxicology. Blood pressure. We will monitor. Hold him NPO except for medicines and clear liquids. He can have clear liquids. We will give him IV fluids. We will run normal saline at 85 mL an hour. We will let him have a Librium taper p.o. We also can give him Ativan IV. He can have 1 to 2 mg Ativan q.2 hours p.r.n. alcohol withdrawal or agitation. cc: Sony Caicedo MD
[2019-03-04 13:39] LABS: HEMOGLOBIN A1C 4.9 % (4.8-6.0)
[2019-03-04 14:00] LABS: FREE T4 1.24 ng/dL (0.93-1.70); TSH 0.58 uIUmL (0.27-4.20)
[2019-03-04] MEDS ORDERED: APRESOLINE IV PRN (15:12)
[2019-03-04] MEDS: DUONEB (A & A) INH PRN ×2 (15:55→19:52)
[2019-03-04] MEDS: NS 1,000 ML IV SCH (17:34)
[2019-03-04] MEDS: BENTYL PO PRN (17:34)
[2019-03-04] MEDS: M.V.I.-12 10 ML, FOLIC ACID 1 MG, MAGNESIUM SULFATE 1 GM, THIAMINE 100 MG in NS 1,000 ML IV SCH (17:34)
[2019-03-04] MEDS: MORPHINE IV PRN ×2 (17:35→22:38)
[2019-03-04] MEDS: LIBRIUM PO SCH (19:39)
[2019-03-04] MEDS: ENTRESTO 24 MG-26 MG TABLET PO SCH (22:32)
[2019-03-04] MEDS: COREG PO SCH (22:32)
[2019-03-05] MEDS: LIBRIUM PO SCH ×3 (01:04→14:15)
[2019-03-05 07:22] LABS: BASO# 0.02 X1000 (0.0-0.2); BASO% 0.4 % (0.0-0.8); EOS% 2.1 % (0.0-10.0); HEMATOCRIT 44.7 % (42.0-52.0); HEMOGLOBIN 15.5 g/dL (14.0-18.0); LYMPH# 1.46 X1000 (1.2-3.4); LYMPH% 31.1 % (20.5-51.1); MCH 30.8 PG (27-31); MCHC 34.7 g/dL (33-37); MCV 88.9 FL (81-99); MONO# 0.79 X1000 (0.11-0.59); MONO% 16.8 % (1.7-9.3); MPV 11.2 FL (7.4-10.4); NEUT# 2.32 X1000 (1.4-6.5); NEUT% 49.6 % (42.2-75.2); PLT 120 X1000 (130-400); RBC 5.03 XMIL (4.7-6.1); RDW 12.9 % (11.5-14.5); WBC 4.69 X1000 (4.8-10.8)
--- NOTE | 2019-03-05 07:31 | EKG Report ---
Test Performed on : 03/05/2019 07:19:16 AM Test Reason : pancreatitis Blood Pressure : / mmHG Vent. Rate : 076 BPM Atrial Rate : 076 BPM P-R Int : 162 ms QRS Dur : 086 ms QT Int : 430 ms P-R-T Axes : 057 -08 042 degrees QTc Int : 483 ms Normal sinus rhythm. Septal infarct (cited on or before 12-AUG-2017) ST & T wave abnormality, consider lateral ischemia Abnormal ECG When compared with ECG of 04-MAR-2019 09:45, (Unconfirmed) No significant change was found Confirmed by Eric Dias MD ([id number]) on 03/05/2019 7:43:28 PM
[2019-03-05 07:33] LABS: INR 1.11; PROTIME 14.4 Seconds (11.0-16.0); PTT 28.4 Seconds (22.3-41.8)
[2019-03-05 07:52] LABS: AGAP 11; ALB/GLOB RATIO 1.3; ALBUMIN 3.5 g/dL (3.5-5.0); ALKALINE PHOSPHATASE 51 U/L (32-122); BUN 14 mg/dL (8-22); CALCIUM 9.2 mg/dL (8.8-10.2); CHLORIDE 102 mmol/L (98-107); COSMO 278; CREATININE 0.9 mg/dL (0.7-1.2); ESTIMATED GFR > 60; GLUCOSE 101 mg/dL (70-104); GOT 22 U/L (10-34); GPT 15 U/L (10-44); MAGNESIUM 1.6 mg/dL (1.5-2.7); POTASSIUM 3.8 mmol/L (3.5-5.1); SODIUM 139 mmol/L (136-145); TCO2 26 mmol/L (25-35); TOTAL BILIRUBIN 1.05 mg/dL (0.20-1.00); TOTAL PROTEIN 6.2 g/dL (6.3-8.3)
[2019-03-05] MEDS: COREG PO SCH ×2 (07:53→12:22)
[2019-03-05] MEDS: BENTYL PO PRN (07:53)
[2019-03-05] MEDS: ASPIRIN EC PO SCH ×2 (07:53→12:21)
[2019-03-05] MEDS: ENTRESTO 24 MG-26 MG TABLET PO SCH ×2 (07:53→12:22)
[2019-03-05] MEDS: MORPHINE IV PRN (07:54)
--- NOTE | 2019-03-05 09:03 | PROGRESS NOTE ---
DATE: 03/05/2019 SUBJECTIVE: Mr. Carreon feels much better so I am going to trial him on a soft diet. He has not had much tremor, and no hallucinations. OBJECTIVE: Temperature 98.2 degrees, pulse 78, respirations 19, and blood pressure 152/110.HEENT: Pupils are equal and round. Lungs: Clear in all lung nelson. Cardiovascular: Regular rhythm and rate without murmur or S3. Abdomen: Soft. Skin: Warm and dry. Urine output is 4600 mL. ASSESSMENT AND PLAN: 1. Pancreatitis improved. I am going to let him try a soft diet. Hopefully, he can go home in the morning. 2. Alcohol withdrawal. Seems to be doing well. cc: Sony Caicedo MD
[2019-03-05] MEDS: NS 1,000 ML IV SCH ×2 (11:37→12:23)
[2019-03-05 12:13] VITALS: BP 130/101
[2019-03-05] MEDS: M.V.I.-12 10 ML, FOLIC ACID 1 MG, MAGNESIUM SULFATE 1 GM, THIAMINE 100 MG in NS 1,000 ML IV SCH (14:15)
== END 2019-03-05 14:16 | disposition left against medical advice (07) | DRG 439 ==
LOC: ED 08:10 → EDIPHOLD 14:16 → 3N 17:03
PROVIDERS: ATTEND Emergency Medicine